=== PATIENT | female | born 1940 | race Caucasian/White ===

== ENCOUNTER 2023-03-27 09:20 | Outpatient (CLI) | payer MEDICARE, SELFPAY ==
[2023-03-27] MEDS: ZOLEDRONIC ACID 5 MG/100 ML 100 ML 400 MG IVPB (09:58)
[2023-03-27 10:09] VITALS: BP 126/63; PULSE 79; RESP 14; TEMP 36; O2SAT 98
--- NOTE | 2023-03-27 10:36 | PC.NURSE ---
patient tolerated infusion well ambulated to elevator to leave without difficulty
== END 2023-03-27 09:21 | disposition home or self-care (01) ==
PROVIDERS: PCP Internal Medicine; Visit Provider Internal Medicine
DX: M81.0 Age-related osteoporosis without current pathological fracture (principal)
CPT/HCPCS: 96365; 96374; J3489

== ENCOUNTER 2023-05-01 11:13 | Outpatient (CLI) | payer MEDICARE, SELFPAY ==
--- NOTE | ~2023-05-01 | XR_ITS ---
AP and lateral views of the left hip Clinical history: Pain Findings: No acute fracture or dislocation is seen. Osseous alignment is anatomic. There is mild dege nerative change of the left hip joint. Soft tissues are unremarkable. Impression: Mild degenerative change of the left hip joint. Reviewed, dictated and finalized at location . Impression: Mild degenerative change of the left hip joint.
== END 2023-05-01 11:14 | disposition home or self-care (01) ==
LOC: CHSIMG 11:15
PROVIDERS: PCP Internal Medicine; Visit Provider Internal Medicine
DX: M25.552 Pain in left hip (principal)
CPT/HCPCS: 73502

== ENCOUNTER 2023-05-18 15:52 | Outpatient (RCR) | payer MEDICARE, SELFPAY ==
--- NOTE | 2023-05-18 16:54 | OPREHPOC ---
Outpatient Therapy Plan of Care This is a Multidisciplinary Plan of Care that may contain components documented by all disciplines (PT, OT, and ST.) PT Problem 1 PT Problem #1 Knowledge Deficit PT Goal 1 Goal 1. independent and compliant with HEP Target Visit 3 PT Problem 2 PT Problem #2 Pain PT Goal 1 Goal 1. 2/10 pain or less in the lower back/L buttock Target Visit 6 PT Problem 3 PT Problem #3 Impaired Flexibility PT Goal 1 Goal 1. improve bilateral hamstrings tightness to less than 20 degrees per the 90/90 test. 2. mild or less bilateral piriformis mm tightness Target Visit 6 PT Problem 4 PT Problem #4 Impaired Range of Motion PT Goal 1 Goal 1. improve bilateral lumbar side bending to greater than 25 degrees without pain Target Visit 6 PT Problem 5 PT Problem #5 Impaired Functional Mobil PT Goal 1 Goal 1. improve bilateral hip strength to 4+/5 or better 2. improve LEFS score to display 10% or less functional deficits 3. patient to stand for 30 minutes in therapy without rest 4. patient to return to prior level home care and functional activities without rest due to pain in the L buttock/hip Target Visit 6
--- NOTE | 2023-05-18 16:54 | PTOPEVAL1 ---
Assessment and note entered by JT File, PT Evaluation Information Assessment Status Evaluation Diagnosis L hip pain Onset 05/04/23 Subjective Information patient reports she saw her PCP for her pain already. she reports has pain with standing. he reports it hurts in the back of the L hip in the buttock. she reports she does ride a bike in her home every day. she reports she did have an xray of the L hip. she reports she has no pain with sitting. she reports the pain does not really go down the leg. she reports she has a history of bilateral knee and shoulder replacements. she reports when she gets up from the chair or sitting she has cramp feeling. she reports it is really bothering her. she reports Reported Pain Level Pain Score 0: Self Report Assessment PT Clinical Summary mrs. lund is a pleasant 82 yo woman who presents to skilled PT services for evaluation and treatment of L hip pain. upon examination, she presents with negative specical tests of the hip, negative special tests of the lower back, weakness in the hips, decreased lumbar rom, decreased functional activity performance, and pain location that indicates a more lumbar/sciatic type injury. continued skilled PT is indicated to improve her objective/functional deficits and progress towards a return to her prior level functional activity performance and quality of life. Plan of Care Interventions Electrical Stimulation,Gait Training,Hot Pack/Cold Pack,Manual Therapy,Neuro Re-education,Patient/ Caregiver Educati,Therapeutic Activities, Therapeutic Exercise PT Services Indicated Yes Treatment Frequency and 3x weekly for 6 visits Duration These treatments will address the objective and functional deficits as defined above. The patient will be advanced safely and appropriately in order for the patient to progress towards his/her prior level of function. Additional exercises will be introduced and as well as a comprehensive home exercise program upon discharge, if needed, ?to ensure carryover of functional gains achieved in the clinic. This treatment plan has been reviewed and agreement upon by the patient.
--- NOTE | 2023-05-26 14:08 | PCPTNOTE ---
patient cancelled due to work
--- NOTE | 2023-06-04 16:35 | PCPTNOTE ---
patient cancelled stating she has a lot going on today
--- NOTE | 2023-06-11 13:13 | OPREHPOC ---
Outpatient Therapy Plan of Care This is a Multidisciplinary Plan of Care that may contain components documented by all disciplines (PT, OT, and ST.) PT Problem 1 PT Problem #1 Knowledge Deficit PT Goal 1 Goal 1. independent and compliant with HEP Target Visit 3 Progress Met PT Problem 2 PT Problem #2 Pain PT Goal 1 Goal 1. 2/10 pain or less in the lower back/L buttock Target Visit 10 Progress Not Met PT Problem 3 PT Problem #3 Impaired Flexibility PT Goal 1 Goal 1. improve bilateral hamstrings tightness to less than 20 degrees per the 90/90 test. met 2. mild or less bilateral piriformis mm tightness Target Visit 10 Progress Partially Met PT Problem 4 PT Problem #4 Impaired Range of Motion PT Goal 1 Goal 1. improve bilateral lumbar side bending to greater than 25 degrees without pain Target Visit 10 Progress Not Met PT Problem 5 PT Problem #5 Impaired Functional Mobil PT Goal 1 Goal 1. improve bilateral hip strength to 4+/5 or better. met 2. improve LEFS score to display 10% or less functional deficits. not met 3. patient to stand for 30 minutes in therapy without rest. 4. patient to return to prior level home care and functional activities without rest due to pain in the L buttock/hip. Target Visit 10 Progress Partially Met
--- NOTE | 2023-06-11 13:13 | PTOPREEVAL ---
Assessment and note entered by JT File, PT Evaluation Information Assessment Status Re-evaluation Diagnosis L hip pain Onset 05/04/23 Subjective Information patient reports she feels Alright today. she reports she believes she may feel slightly better. she reports her symptoms are generally worse in the evenings, and worse with increased activities. she reports she tries to stay busy. she reports she still has difficulty with going up and down steps (but uses a rail for safety), taking too much from the car at one time, and she does not get on ladders currently. Reported Pain Level Pain Score 5: Self Report Assessment PT Clinical Summary mrs. lund presents to skilled PT for her 6th skilled therapy visit. today, she displays improved lumbar rom, improve hamstrings flexibility, increased hip strength, and decreased pain. despite essentially no change on the LEFS score, patient reports she does feel better and that she is improving. she reports she would like to continue skilled PT. she continues to have unmet goals for skilled PT, and would benefit from continued skilled PT intervention to improve her objective/functional deficits to achieve these goals. Plan of Care Interventions Electrical Stimulation,Gait Training,Hot Pack/Cold Pack,Manual Therapy,Neuro Re-education,Patient/ Caregiver Educati,Therapeutic Activities, Therapeutic Exercise PT Services Indicated Yes Treatment Frequency and continue skilled PT 2x weekly for 4 more visits Duration These treatments will address the objective and functional deficits as defined above. The patient will be advanced safely and appropriately in order for the patient to progress towards his/her prior level of function. Additional exercises will be introduced and as well as a comprehensive home exercise program upon discharge, if needed, ?to ensure carryover of functional gains achieved in the clinic. This treatment plan has been reviewed and agreement upon by the patient.
--- NOTE | 2023-06-26 16:41 | OPREHPOC ---
Outpatient Therapy Plan of Care This is a Multidisciplinary Plan of Care that may contain components documented by all disciplines (PT, OT, and ST.) PT Problem 1 PT Problem #1 Knowledge Deficit PT Goal 1 Goal 1. independent and compliant with HEP Target Visit 3 Progress Met PT Problem 2 PT Problem #2 Pain PT Goal 1 Goal 1. 2/10 pain or less in the lower back/L buttock Target Visit 14 Progress Not Met PT Problem 3 PT Problem #3 Impaired Flexibility PT Goal 1 Goal 1. improve bilateral hamstrings tightness to less than 20 degrees per the 90/90 test. met 2. mild or less bilateral piriformis mm tightness Target Visit 14 Progress Partially Met PT Problem 4 PT Problem #4 Impaired Range of Motion PT Goal 1 Goal 1. improve bilateral lumbar side bending to greater than 25 degrees without pain, met for R Target Visit 14 Progress Not Met PT Problem 5 PT Problem #5 Impaired Functional Mobil PT Goal 1 Goal 1. improve bilateral hip strength to 4+/5 or better. met 2. improve LEFS score to display 10% or less functional deficits. 3. patient to stand for 30 minutes in therapy without rest. 4. patient to return to prior level home care and functional activities without rest due to pain in the L buttock/hip. Target Visit 14 Progress Partially Met
--- NOTE | 2023-06-26 16:41 | PTOPREEVAL ---
Assessment and note entered by Nithya Stone DPT Evaluation Information Assessment Status Progress - Pt Not Present Diagnosis L hip pain Onset 05/04/23 Subjective Information patient reports she is feeling better but today did have increased pain with yard work and getting up out of a chair. she reports overall she has improved and would like to continue with PT 1x/ weekly. Reported Pain Level Pain Score 5: Self Report Pain Score 5: Self Report Assessment PT Clinical Summary mrs. lund presents to skilled PT for her 10th skilled therapy visit. today, she displays improved L lumbar rotation ROM, increased hip strength, and decreased pain. she demonstrates improvement on the LEFS score, patient reports she does feel better and that she is improving. today she attempted yard work and noticed increased pain with increased activity she reports she would like to continue skilled PT 1x weekly. she continues to have unmet goals for skilled PT, and would benefit from continued skilled PT intervention to improve her objective/functional deficits to achieve these goals. Plan of Care Interventions Electrical Stimulation,Gait Training,Hot Pack/Cold Pack,Manual Therapy,Neuro Re-education,Patient/ Caregiver Educati,Therapeutic Activities, Therapeutic Exercise PT Services Indicated Yes Treatment Frequency and continue skilled PT 1x weekly for 4 more visits Duration These treatments will address the objective and functional deficits as defined above. The patient will be advanced safely and appropriately in order for the patient to progress towards his/her prior level of function. Additional exercises will be introduced and as well as a comprehensive home exercise program upon discharge, if needed, ?to ensure carryover of functional gains achieved in the clinic. This treatment plan has been reviewed and agreement upon by the patient.
--- NOTE | 2023-07-10 14:31 | PCPTNOTE ---
Patient cancelled session due to weather.
--- NOTE | 2023-07-22 13:55 | PCPTNOTE ---
pt cancelled giving no reason
--- NOTE | 2023-08-04 14:00 | OPREHPOC ---
Outpatient Therapy Plan of Care This is a Multidisciplinary Plan of Care that may contain components documented by all disciplines (PT, OT, and ST.) PT Problem 1 PT Problem #1 Knowledge Deficit PT Goal 1 Goal 1. independent and compliant with HEP Target Visit 3 Progress Met PT Problem 2 PT Problem #2 Pain PT Goal 1 Goal 1. 2/10 pain or less in the lower back/L buttock Target Visit 14 Progress Met PT Problem 3 PT Problem #3 Impaired Flexibility PT Goal 1 Goal 1. improve bilateral hamstrings tightness to less than 20 degrees per the 90/90 test. met 2. mild or less bilateral piriformis mm tightness. met Target Visit 14 Progress Met PT Problem 4 PT Problem #4 Impaired Range of Motion PT Goal 1 Goal 1. improve bilateral lumbar side bending to greater than 25 degrees without pain, met Target Visit 14 Progress Met PT Problem 5 PT Problem #5 Impaired Functional Mobil PT Goal 1 Goal 1. improve bilateral hip strength to 4+/5 or better. met 2. improve LEFS score to display 10% or less functional deficits. 3. patient to stand for 30 minutes in therapy without rest. met 4. patient to return to prior level home care and functional activities without rest due to pain in the L buttock/hip. met Target Visit 14 Progress Partially Met
--- NOTE | 2023-08-04 14:00 | PTOPDC ---
Assessment and note entered by JT File, PT Evaluation Information Assessment Status Discharge Diagnosis L hip pain Onset 05/04/23 Subjective Information patient reports she feels good today. she reports she has no pain in the lower back or the L LE. she reports she has been back to doing all previous activities without issues. Reported Pain Level Pain Score 0: Self Report Assessment PT Clinical Summary mrs. lund presents to skilled PT services for her 14th skilled PT visit. as of this date, she presents with no pain in the lower back or L LE. she has returned to all prior level functional activities without limitation. her rom, strength, and functional activity performance is improved. she does rate her oswestry slightly higher, but patient does not attempt to lift more than light weight ever. she will DC skilled PT today, and continue with HEP independent at home. she would benefit from a home TENS unit to aid in treating small flare ups of soreness/pain. Plan of Care PT Services Indicated Yes
== END 2023-08-04 14:21 | disposition home or self-care (01) ==
LOC: CHSPT 15:52
PROVIDERS: Visit Provider Internal Medicine
DX: M25.552 Pain in left hip (principal)
CPT/HCPCS: 97014; 97110; 97140; 97161; G0283

== ENCOUNTER 2023-05-28 07:08 | Outpatient (CLI) | payer MEDICARE, SELFPAY ==
--- NOTE | ~2023-05-28 | MR_ITS ---
MRI of the left hip Clinical history: Pain and swelling Technique: Coronal T1-weighted, T2-weighted, and proton-density fat-sat images, and axial T1-weighted and proton-density fat-sat images were acquired through the pelvis. Coronal T2-weighted images and c oronal, axial, and sagittal proton-density fat-sat images were acquired through the left hip. Findings: There is no fracture or avascular necrosis of either hip. Bone marrow signals the proximal femora and visualized pelvic bones are unremarkable. Bilateral hip joint spaces are preserved. There is bony spurring at the superolateral acetabular margins bilaterally. No significant hip joint effusi on present. Articular cartilage is relatively well-preserved, with thinning at the superolateral aspe cts bilaterally. There is probable degenerative tearing of the superolateral the posterior left aceta bular labrum. There is tendinosis of the left gluteus minimus tendon in particular at its insertion at the greater trochanter. Remaining musculature and tendons appear intact. No soft tissue mass or fluid collection evident. No bursitis evident. IMPRESSION: Moderate tendinosis at the left gluteus minimus tendon insertion at the greater trochanter with mild surrounding soft tissue edema. Degenerative spurring at the superolateral acetabular margins bilaterally, with probable degenerative tearing of the superolateral to posterior left acetabular labrum. Reviewed, dictated and finalized at location . IMPRESSION: Moderate tendinosis at the left gluteus minimus tendon insertion at the greater trochanter with mild surrounding soft tissue edema. Degenerative spurring at the superolateral acetabular margins bilaterally, with probable degenerative tearing of the superolateral to posterior left acetabula r labrum.
== END 2023-05-28 07:09 | disposition home or self-care (01) ==
LOC: CHSIMG 07:09
PROVIDERS: PCP Internal Medicine; Visit Provider Internal Medicine
DX: M25.552 Pain in left hip (principal); M79.89 Other specified soft tissue disorders; M76.02 Gluteal tendinitis, left hip; M76.892 Other specified enthesopathies of left lower limb, excluding foot
CPT/HCPCS: 73721

== ENCOUNTER 2024-02-29 14:21 | Outpatient (CLI) | payer MEDICARE, SELFPAY ==
--- NOTE | ~2024-02-29 | CT_ITS ---
CT brain wo con Ordering provider: Genaro Witt MD History: 83 years Female with . headache/nausea/dyspnea,WORSENING XWEEKS . Comparison: None. Technique: CT of the head without contrast. Radiation reduction technique utilized. The dose-length product was 605.33 mGy-cm. FINDINGS: BRAIN PARENCHYMA AND CSF SPACES: No midline shift, mass effect or hemorrhage. The brain parenchyma a nd CSF spaces are otherwise normal. VISUALIZED PARANASAL SINUSES: Well aerated. MASTOIDS: Well aerated. BONES: The bones appear intact. SOFT TISSUES: Visualized nasopharynx is normal. Superficial soft tissues are normal. IMPRESSION: No acute intracranial findings. Reviewed, dictated and finalized at location A. SITIONS MANAGER
[2024-02-29 14:42] LABS: Basophils Absolute Auto 0.02 K/mm3 (0.00-0.10); Basophils Percent Auto 0.4 % (0.0-1.0); Eosinophils Absolute Auto 0.04 K/mm3 (0.02-0.50); Eosinophils Percent Auto 0.9 % (1.0-6.0); Hematocrit 39.4 % (35.0-42.0); Hemoglobin 12.7 g/dL (11.7-13.8); Immature Granulocyte Absolute 0.01 K/mm3 (0.00-0.00); Immature Granulocyte Percent A 0.2 % (0.0-0.0); Lymphocytes Absolute Auto 1.15 K/mm3 (1.10-4.50); Lymphocytes Percent Auto 25.1 % (18.0-42.0); Mean Corpuscular HGB Conc 32.2 g/dL (32-36); Mean Corpuscular Hemoglobin 30.8 pg (27.0-31.0); Mean Corpuscular Volume 95.4 fL (78.0-102.0); Mean Platelet Volume 9.9 fl (9.2-11.8); Monocytes Percent Auto 8.7 % (2.0-11.0); Neutrophils Absolute Auto 2.96 K/mm3 (1.70-7.20); Neutrophils Percent Auto 64.7 % (50.0-70.0); Platelet Count Result 184 K/mm3 (150-420); Red Blood Count 4.13 M/mm3 (4.20-5.40); Red Cell Distribution Width 13.6 % (11.6-14.4); White Blood Count 4.6 K/mm3 (4.8-10.8)
[2024-02-29 15:01] LABS: Alanine Aminotransferase 22 U/L (14-59); Albumin Level 4.1 g/dL (3.4-5.0); Alkaline Phosphatase 55 U/L (46-116); Amylase 27 U/L (25-115); Anion Gap 9 mmol/L (4-12); Aspartate Amino Transferase 17 U/L (15-37); Bilirubin,Total 0.3 mg/dL (0.00-1.00); Blood Urea Nitrogen 19 mg/dL (7-18); Calcium 9.3 mg/dL (8.5-10.1); Carbon Dioxide 31 mmol/L (21-32); Chloride 101 mmol/L (98-108); Estimated Glomerular Filt Rate 48; Glucose 81 mg/dL (70-99); Lipase 27 U/L (16-77); Osmolality Calculated 293 mOsm/kg (285-295); Potassium 3.7 mmol/L (3.5-5.1); Sodium 141 mmol/L (136-145); Total Protein 7.3 g/dL (6.4-8.2)
[2024-02-29 15:11] LABS: CRP < 0.5 mg/dL (0.0-0.9)
[2024-02-29 15:45] LABS: SARS-CoV-2 RNA PCR Negative (Negative)
[2024-02-29 15:47] LABS: Influenza A QL RT-PCR Negative (Negative); Influenza B QL RT-PCR Negative (Negative)
[2024-02-29 15:59] LABS: Erythrocyte Sedimentation Rate 21 mm/hr (0-20)
== END 2024-02-29 14:22 | disposition home or self-care (01) ==
LOC: CHSLAB 14:23
PROVIDERS: PCP Internal Medicine; Visit Provider Internal Medicine
DX: R51.9 Headache, unspecified (principal); R11.2 Nausea with vomiting, unspecified
CPT/HCPCS: 36415; 70450; 80053; 82150; 83690; 85025; 85652; 86140; 87636

== ENCOUNTER 2024-04-14 09:53 | Outpatient (CLI) | payer MEDICARE, SELFPAY ==
[2024-04-14 10:11] VITALS: BP 109/63; PULSE 74; RESP 16; TEMP 36.6; O2SAT 97; BMI 29.8
[2024-04-14] MEDS: ZOLEDRONIC ACID 5 MG/100 ML 100 ML 400 MG IVPB (10:15)
[2024-04-14 10:35] VITALS: BP 109/60; PULSE 68; RESP 14
--- NOTE | 2024-04-14 11:59 | PC.NURSE ---
1040 Patient here for Reclast. Education given. No concerns voiced. Reclast administered. SEE MAR/patient care notes. Tolerated well.
== END 2024-04-14 09:54 | disposition home or self-care (01) ==
PROVIDERS: PCP Internal Medicine; Visit Provider Internal Medicine
DX: M81.0 Age-related osteoporosis without current pathological fracture (principal)
CPT/HCPCS: 96374; J3489

== ENCOUNTER 2024-04-25 10:40 | Outpatient (CLI) | payer MEDICARE, SELFPAY ==
[2024-04-25 11:10] LABS: Add Urine Microscopic? YES; Appearance Urine Sl Cloudy (Clear); Basophils Absolute Auto 0.02 K/mm3 (0.00-0.10); Basophils Percent Auto 0.3 % (0.0-1.0); Bilirubin Urine Negative (Negative); Blood Urine Negative (Negative); Color Urine Yellow (Yellow); Eosinophils Absolute Auto 0.04 K/mm3 (0.02-0.50); Eosinophils Percent Auto 0.7 % (1.0-6.0); Glucose Urine UA Negative (Negative); Hemoglobin 12.9 g/dL (11.7-13.8); Immature Granulocyte Absolute 0.02 K/mm3 (0.00-0.00); Immature Granulocyte Percent A 0.3 % (0.0-0.0); Ketones Urine Negative (Negative); Leukocyte Esterase Ur Trace LEU/UL (Negative); Lymphocytes Absolute Auto 1.29 K/mm3 (1.10-4.50); Lymphocytes Percent Auto 22.5 % (18.0-42.0); Mean Corpuscular HGB Conc 32.3 g/dL (32-36); Mean Corpuscular Hemoglobin 31.3 pg (27.0-31.0); Mean Corpuscular Volume 97.1 fL (78.0-102.0); Monocytes Absolute Auto 0.46 K/mm3 (0.10-0.90); Neutrophils Percent Auto 68.2 % (50.0-70.0); Nitrate Urine Negative (Negative); Platelet Count Result 193 K/mm3 (150-420); Protein Urine Trace (Negative); Red Blood Count 4.12 M/mm3 (4.20-5.40); Red Cell Distribution Width 13.6 % (11.6-14.4); Specific Grav Ur >= 1.030 (1.010-1.020); Urobilinogen Urine 0.2 mg/dL (0.2-1.0); White Blood Count 5.7 K/mm3 (4.8-10.8); pH Urine 5.5 (5.0-8.0)
[2024-04-25 11:15] LABS: Bacteria Urine 1+ /hpf; RBC Urine None seen /hpf (0-2); Squamous Epithelial Cell Urine Few /hpf (Few)
[2024-04-25 11:54] LABS: Alanine Aminotransferase 27 U/L (14-59); Alkaline Phosphatase 60 U/L (46-116); Anion Gap 7 mmol/L (4-12); Aspartate Amino Transferase 16 U/L (15-37); Bilirubin,Total 0.3 mg/dL (0.00-1.00); Blood Urea Nitrogen 22 mg/dL (7-18); Calcium 9.3 mg/dL (8.5-10.1); Carbon Dioxide 31 mmol/L (21-32); Chloride 106 mmol/L (98-108); Cholesterol 229 mg/dL (0-200); Creatine Kinase 191 U/L (26-192); Estimated Glomerular Filt Rate 48; Free T4 Free Thyroxine 1.01 ng/dL (0.76-1.46); Glucose 103 mg/dL (70-99); HDL Direct 80 mg/dL (40-60); LDL Cholesterol Calculated 113 mg/dL (<130); Osmolality Calculated 301 mOsm/kg (285-295); Potassium 4.5 mmol/L (3.5-5.1); Sodium 144 mmol/L (136-145); Thyroid Stimulating Hormone 5.79 uIU/mL (0.36-3.74); Triglycerides 178 mg/dL (0-150)
[2024-04-25 12:05] LABS: Free T3 1.74 pg/mL (2.18-3.98)
--- OUTSIDE RECORDS SUMMARY | 2024-04-25 12:36 | XMS_ITS | Encounter Summary ---
Author Organization [facility] Address [facility] [place] [address] Care Team Providers Care Material Handling Equipment Stevedore Name Role Phone Kannan So MD Primary Care Provider Genaro Witt MD Primary Care Provider [phone] Encounter Details Date Type Department Care Team (Late st Contact Info) Description 07/24/2018 Abstract [facility] CONVERSION [address] [place] [address] , Generic MD Curtis Social History Tobacco Use Types Packs/Day Years Used Date Smoking Tobacco: Never Smokeless Tobacco: Never Alcohol Use Standard Drinks/Week Comments Yes 0 (1 standard drink = 0.6 oz pur e alcohol) occasional Comments Unknown Sex and Gender Information Value Date Recorded Sex Assigned at Female 03/03/2018 8:38 AM NON DESTRUCTIVE TESTING ENGINEER Legal Sex Female 7:55 PM CDT Gender Identity Female 03/03/2018 8:38 AM NON DESTRUCTIVE TESTING ENGINEER Sexual Orientation Not on file documented as of this encounter Plan of Treatment Not on file documented as of this encounter Visit Diagnoses Not on filedocumented in this encounter Additional Health Concerns Infection Onset Date Last Indicated Resolved Time COVID-19 Rule Out 02/17/2020 02/17/2020 02/19/2020 9:31 AM NON DESTRUCTIVE TESTING ENGINEER COVID-19 Rule Out 10/10/2020 10/10/2020 10/10/2020 10:58 AM CDT COVID-19 Rule Out 10/10/2020 10/10/2020 10/10/2020 10:50 PM CDT documented as of this encounter Care Teams Material Handling Equipment Stevedore Relationship Specialty Start Date End Date Kannan So MD [address] [place] [address] PCP - General FAMILY PRACTICE 03/02/18 09/30/22 Genaro Witt MD [address] [place] [address] PCP - General INTERNAL MEDICINE 10/01/22 documented as of this encounter
--- OUTSIDE RECORDS SUMMARY | 2024-04-25 12:36 | XMS_ITS | Encounter Summary ---
Author Organization [facility] Address [facility] [place] [address] Care Team Providers Care Licensed Life And Health Agent Name Role Phone Kannan So MD Primary Care Provider [phone] Genaro Witt MD Primary Care Provider [phone] Encounter Details Date Type Department Care Team (Late st Contact Info) Description 04/29/2022 Hospital Orders Only [facility] [address] [place] [address] Keshawn Figueroa, DPT Social History Tobacco Use Types Packs/Day Years Used Date Smoking Tobacco: Never Smokeless Tobacco: Never Alcohol Use Standard Drinks/Week Comments Yes 0 (1 standard drink = 0.6 oz pur e alcohol) occasional Comments No Sex and Gender Information Value Date Recorded Sex Assigned at Female 03/03/2018 8:38 AM CHEMISTRY MANAGER Legal Sex Female 7:55 PM CDT Gender Identity Female 03/03/2018 8:38 AM CHEMISTRY MANAGER Sexual Orientation Not on file COVID-19 Exposure Response Date Recorded In the last 10 days, have yo u been in contact with someone who was confirmed or suspected to have Coronavirus/COVID-19? No / Unsure 05/01/2022 9:50 AM CDT documented as of this encounter Functional Status * RETIRED Are you deaf or do you have serious difficulty hearing Answer Date of Assessment Author Status No 03/10/2022 1:47 PM CHEMISTRY MANAGER Activ e * RETIRED Are you blind or do you have serious difficulty seeing, even when wearing glasses? Answer Date of Assessment Author Status No 03/10/2022 1:47 PM CHEMISTRY MANAGER Activ e * Do you have serious difficulty walking or climbing stairs? Answer Date of Assessment Author Status No 03/10/2022 1:47 PM Jahaira Delatorre RN Active * Do you have difficulty dressing or bathing? Answer Date of Assessment Author Status No 03/10/2022 1:47 PM Jahaira Delatorre RN Active * Because of a physical, mental, or emotional condition, do you have difficulty doing errands alone such as visiting a doctor's office or shopping? Answer Date of Assessment Author Status No 03/10/2022 1:47 PM Jahaira Delatorre RN Active documented as of this encounter Mental Status * Because of a physical, mental, or emotional condition, do you have serious difficulty concentrating, remembering, or making decisions? Answer Entry Date Author Status No 03/10/2022 1:47 PM Jahaira Delatorre RN Active documented in this encounter Plan of Treatment Not on file documented as of this encounter Goals Goal Patient Goal Type Associated Problems Recent Progress Patient-Stated? Author Patient will return to prior living situation and remain independent in ADLs upon discharge from hospital Lifestyle No Andie Sanchez RN documented as of this encounter Visit Diagnoses Not on filedocumented in this encounter Care Teams Licensed Life And Health Agent Relationship Specialty Start Date End Date Kannan So MD [address] [place] [id number] PCP - General FAMILY PRACTICE 03/02/18 09/30/22 Genaro Witt MD [address] [place] [address] PCP - General INTERNAL MEDICINE 10/01/22 documented as of this encounter
--- OUTSIDE RECORDS SUMMARY | 2024-04-25 12:36 | XMS_ITS | Clinical Summary ---
Author Organization [facility] Address [address] [place] [address] Care Team Providers Care Softball Player Name Role Phone Genaro Witt MD Primary Care Provider [phone] Allergies No known active allergies Medications levothyroxine 100 MCG tabletIndicatio ns:Hypothyroidi sm Take 1 tablet (100 mcg total) by mouth every morning. Indications: Underactive Thyroid 1 Active omeprazole (PRILOSEC) 40 MG capsuleIndicati ons:acid reflux Take 1 capsule (40 mg total) by mouth 2 (two) times daily as needed. Indications: acid reflux 2 Active ibuprofen (MOTRIN) 400 MG tabletIndicatio ns:Pain Take 1 tablet (400 mg total) by mouth every 4 (four) hours as needed. Indications: Pain Alternating with [place]. 3 Active docusate sodium (COLACE) 100 MG capsuleIndicati ons:Constipatio n Take 1 capsule (100 mg total) by mouth 2 (two) times daily. Indications: Constipation 3 Active acetaminophen (TYLENOL) 500 MG tabletIndicatio ns:Pain Take 2 tablets (1,000 mg total) by mouth every 6 (six) hours as needed for Pain. Indications: Pain 3 Active alendronate (FOSAMAX) 70 MG tablet Take 1 tablet (70 mg total) by mouth every 7 days. 3 Active atorvastatin (LIPITOR) 40 MG tablet Take 1 tablet (40 mg total) by mouth daily. 3 Active fluticasone propionate (FLONASE) 50 MCG/ACT nasal spray 1 spray by Each Nostril route daily. 3 Active Active Problems Problem Noted Date Diagnosed Date Cellulitis of right lower leg 03/07/2020 Aftercare following surgery 03/18/2018 Menopausal and postmenopausal disorder 0 Hypothyroidism 04/19/2007 Iron deficiency anemia 07/21/2005 Colon, diverticulosis 05/28/2005 GERD (gastroesophageal reflux disease) Depression Hypercholesterolemia Vitamin D deficiency Hyperparathyroidism (HHS/HCC) Thyrotoxicosis Nonorganic sleep disorder Resolved Problems Problem Noted Date Diagnosed Date Resolved Date Status post reverse total sh oulder replacement, left 03/10/2022 04/23/2022 Nontraumatic tear of left ro tator cuff, unspecified tear extent 02/13/2022 04/23/2022 Aftercare following right kn ee joint replacement surgery 03/02/2020 04/23/2022 Status post total knee replacement, right 02/24/2020 03/07/2020 Status post total right knee replacement 02/20/2020 03/07/2020 Rotator cuff tear, right 11/03/2019 Primary osteoarthritis of right knee 12/24/2018 04/23/2022 Tear of meniscus of left knee 12/24/2018 12/24/2018 Status post reverse total sh oulder replacement, right 10/27/2018 11/03/2019 Rotator cuff tear arthropathy 10/25/2018 12/24/2018 Rotator cuff tear arthropath y, unspecified laterality 10/13/2018 10/27/2018 Rotator cuff arthropathy, right 09/16/2018 10/27/2018 Lipoma of arm 03/03/2018 03/18/2018 Aftercare following left kne e joint replacement surgery 10/29/2017 03/18/2018 Knee pain 06/12/2014 03/18/2018 Encounter for preventive health examination 06/02/2014 03/18/2018 Immunizations Name Administration Dates Next Due Influenza Adult (Generic) 11/10/2011 Family History Medical History Relation Comments No Known Problems Brother No Known Problems Father No Known Problems Maternal Aunt No Known Problems Maternal Grandfather No Known Problems Maternal Grandmother No Known Problems Maternal Uncle No Known Problems Mother No Known Problems Paternal Aunt No Known Problems Paternal Grandfather No Known Problems Paternal Grandmother No Known Problems Paternal Uncle None Neg Hx Relation Status Comments Brother Alive Father Maternal Aunt Maternal Grandfather Maternal Grandmother Maternal Uncle Mother Paternal Aunt Paternal Grandfather Paternal Grandmother Paternal Uncle Social History Tobacco Use Types Packs/Day Years Used Date Smoking Tobacco: Never Smokeless Tobacco: Never Tobacco Cessation:Counseling Given: Not Answered Alcohol Use Standard Drinks/Week Comments Yes 0 (1 standard drink = 0.6 oz pur e alcohol) occasional Comments No Sex and Gender Information Value Date Recorded Sex Assigned at Female 03/03/2018 8:38 AM CLEAN RICE GRADER AND REEL TENDER Legal Sex Female 7:55 PM CDT Gender Identity Female 03/03/2018 8:38 AM CLEAN RICE GRADER AND REEL TENDER Sexual Orientation Not on file Last Filed Vital Signs Vital Sign Reading Time Taken Comments Blood Pressure 120/72 03/19/2022 12:31 PM CLEAN RICE GRADER AND REEL TENDER Pulse 81 03/13/2022 8:52 AM CLEAN RICE GRADER AND REEL TENDER Temperature 36.5 C (97.7 F) 03/13/2022 8:52 AM CLEAN RICE GRADER AND REEL TENDER Respiratory Rate 18 03/13/2022 8:52 AM CLEAN RICE GRADER AND REEL TENDER Oxygen Saturation 97% 03/13/2022 8:52 AM CLEAN RICE GRADER AND REEL TENDER Inhaled Oxygen Concentration - - Weight 80.3 kg (177 lb) 12/31/2022 4:16 PM CLEAN RICE GRADER AND REEL TENDER Height 154.9 cm (5' 1 ) 12/31/2022 4:16 PM CLEAN RICE GRADER AND REEL TENDER Body Mass Index 33.44 12/31/2022 4:16 PM CLEAN RICE GRADER AND REEL TENDER Plan of Treatment Health Maintenance Due Date Last Done Comments DTaP, Tdap and Td Vaccines ( 1 - Tdap) 1960 Zoster Vaccines (1 of 2) 07/23/1991 Annual Medicare Wellness Visit 2006 RSV Immunization or 60+ Years (1 - 1-dose 75+ series) 2016 Pneumococcal Vaccine: 65+ Ye ars (2 of 2 - PPSV23 or PCV20) 01/07/2018 01/07/2017 COVID-19 Vaccine (2 - 2023-2 5 season) 2023 04/30/2020 Influenza Adult (#1) 2023 11/10/2011 Dexa Scan (General) Completed 06/17/2022 Meningococcal B Vaccine Aged Out No l onger eligible based on patient's age to complete this topic Meningococcal Vaccine Aged Out No ruth esdras eligible based on patient's age to complete this topic RSV Immunizations Under 20 Months Aged Out No longer eligible based on patient's age to complete this topic Goals Goal Patient Goal Type Associated Problems Recent Progress Patient-Stated? Author Patient will return to prior living situation and remain independent in ADLs upon discharge from hospital Lifestyle Andie Mcdaniels RN Medical Devices Implanted Type Area Psychologist Chief Device Identifier Shelf Expiration Date Model / Serial / Lot Cement Simplex Hv W/Gentamicin - [id number] Implanted:Qty: 2 on 02/20/2020 by Crow Bradford MD at [facility] Cement Implant Right: Knee [employer]ENE[employer]ER [employer] - DIV EBENEZER LIA 11/15/2020 6195-1-010 / / [id number] Stem Humeral 121mm 12mm Modular Global Unite Porous Standard Shoulder Platform Arthroplasty System - [id number] Implanted:Qty: 1 on 03/10/2022 by Crow Bradford MD at [facility] Humeral Left: Shoulder DEPUY [id number] 12/17/2031 [id number] / / [id number] Cup Humeral Standard Delta Xtend Depuy - [id number] Implanted:Qty: 1 on 03/10/2022 by Crow Bradford MD at [facility] Humeral Left: Shoulder DEPUY [id number] 10/16/2026 [id number] / / [id number] Component Ptlr 32mm Medialize Dome Attune - [id number] Implanted:Qty: 1 on 02/20/2020 by Crow Bradford MD at [facility] Patella Right: Knee [employer]PU[employer] - [employer] S[employer]IA [id number] 12/16/2024 [id number] / / [id number] Description:*Unable to add SFL OR to inventory location in above information Screw Locking Depuy Delta Xtend Lg 36mm - [id number] Implanted:Qty: 1 on 03/10/2022 by Crow Bradford MD at [facility] Screw Left: Shoulder DEPUY [id number] 12/16/2026 [id number] / / [id number] Screw Locking Depuy Delta Xtend Lg 30mm - [id number] Implanted:Qty: 1 on 03/10/2022 by Crow Bradford MD at [facility] Screw Left: Shoulder DEPUY [id number] 09/15/2026 [id number] / / [id number] Metaglene Depuy Delta Xtend - [id number] Implanted:Qty: 1 on 10/25/2018 by Crow Bradford MD at [facility] Right: Shoulder DEPUY 05/17/2023 [id number] / / [id number] Screw Locking Depuy Delta Xtend Lg 36mm - [id number] Implanted:Qty: 1 on 10/25/2018 by Crow Bradford MD at [facility] Right: Shoulder DEPUY 03/18/2023 [id number] / / [id number] Screw Locking Depuy Delta Xtend Lg 30mm - [id number] Implanted:Qty: 1 on 10/25/2018 by Crow Bradford MD at [facility] Right: Shoulder DEPUY 04/16/2023 [id number] / / [id number] Screw Non Locking Depuy Delta Xtend Lg 18mm - [id number] Implanted:Qty: 1 on 10/25/2018 by Crow Bradford MD at [facility] Right: Shoulder DEPUY 06/16/2023 [id number] / / [id number] Screw Non Locking Depuy Delta Xtend Lg 18mm - [id number] Implanted:Qty: 1 on 10/25/2018 by Crow Bradford MD at [facility] Right: Shoulder DEPUY 04/16/2023 [id number] / / [id number] Glenosphere Eccentric Depuy 38mm - [id number] Implanted:Qty: 1 on 10/25/2018 by Crow Bradford MD at [facility] Right: Shoulder DEPUY 06/16/2023 [id number] / / [id number] Epiphysis Delta Xtend Depuy Size 1 Right - [id number] Implanted:Qty: 1 on 10/25/2018 by Crow Bradford MD at [facility] Right: Shoulder DEPUY 04/16/2023 [id number] / / [id number] Global Unite Porocoat Standard Stem Implanted:Qty: 1 on 10/25/2018 by Crow Bradford MD at [facility] Right: Shoulder 11/16/2027 1099-11-25 0 / / [id number] Cup Humeral Standard Delta Xtend Depuy - [id number] Implanted:Qty: 1 on 10/25/2018 by Crow Bradford MD at [facility] Right: Shoulder DEPUY 05/17/2023 [id number] / / [id number] Attune Femoral Cruciate Retaining Size 4 Right Cemented Implanted:Qty: 1 on 02/20/2020 by Crow Bradford MD at [facility] Right: Knee [employer] - [employer] [id number] 08/15/2029 4 / / [id number] Baseplate Tibial Attune 4 Knee Cement Rotate Platform Sterile - [id number] Implanted:Qty: 1 on 02/20/2020 by Crow Bradford MD at [facility] Right: Knee DEPUY [id number] 11/15/2029 [id number] / / [id number] Attune Tibial Insert Rotating Platform Cruciate Retaining Size 4 Implanted:Qty: 1 on 02/20/2020 by Crow Bradford MD at [facility] Right: Knee [employer] - [employer] [id number] 04/15/2022 0 / / [id number] Delta Xtend Locking Metaglene Screw 4.5 Lg 30mm Implanted:Qty: 1 on 03/10/2022 by Crow Bradford MD at [facility] Left: Shoulder DEPUY [id number] 09/15/2026 0 / / [id number] Delta Xtend Non-Locking Metaglene Screw 4.5 Lg 18mm Implanted:Qty: 1 on 03/10/2022 by Crow Bradford MD at [facility] Left: Shoulder DEPUY [id number] 10/16/2026 8 / [id number] Delta Xtend Lateralized Glenosphere +2mm 38mm Standard Implanted:Qty: 1 on 03/10/2022 by Crow Bradford MD at [facility] Left: Shoulder DEPUY [id number] 10/16/2026 8 / / [id number] Delta Xtend Reverse Shoulder System Central Screw Metaglene Collet Implanted:Qty: 1 on 03/10/2022 by Crow Bradford MD at [facility] Left: Shoulder DEPUY [id number] 10/16/2026 1 / / [id number] Delta Xtend Reverse Shoulder System Central Metaglene Screw 6m X 20mm Implanted:Qty: 1 on 03/10/2022 by Crow Bradford MD at [facility] Left: Shoulder DEPUY [id number] 02/15/2031 0 / / [id number] Delta Xtend Reverse Shoulder System Central Screw Metaglene Standard Cementless Implanted:Qty: 1 on 03/10/2022 by Crow Bradford MD at [facility] Left: Shoulder DEPUY [id number] 09/16/2031 0 / / [id number] Delta Xtend Modular 155 Degree Epiphysis Size 1 Left Porocoat Implanted:Qty: 1 on 03/10/2022 by Crow Bradford MD at [facility] Left: Shoulder DEPUY [id number] 07/16/2030 2 / / [id number] Explanted Type Area Psychologist Chief Device Identifier Shelf Expiration Date Model / Serial / Lot Drill Bit Depuy 2.5 - [id number] Explanted:Qty: 1 on 03/10/2022 by Crow Bradford MD at [facility] Drill Left: Shoulder DEPUY [id number] / / Drill Bit Depuy 2.5 - [id number] Explanted:Qty: 1 on 10/25/2018 at [facility] Right: Shoulder DEPUY [id number] / / 2.5 Pin Explanted:Qty: 1 on 03/10/2022 by Crow Bradford MD at [facility] Left: Shoulder DEPUY [id number] / / Procedures Procedure Name Priority Date/Time Associated Diagnosis Comments BONE DENSITY/DEXA Routine 06/17/2022 10: 00 AM CDT Osteoporosis from Last 3 Months or Most Recently Relevant to Health Maintenance Results * BONE DENSITY/DEXA (06/17/2022 10:00 AM CDT) Anatomical Region Laterality Modality Bone Bone Density 06/17/2022 4:54 PM CDT Impressions 06/17/2022 4:55 PM CDT IMPRESSION: WHO Classification: Osteopenia RECOMMENDATIONS: All patients should ensure an adequate intake of dietary calcium and vitamin D. The NOF recommend adults under the age of 50 need 1000 mg of calcium and 400-800 IU of vitamin D daily. Effective therapy for the prevention and treatment of osteoporosis include bisphosphonates. FOLLOW-UP: People with diagnosed cases of osteoporosis or at high risk for fracture should have regular bone mineral density test. For patients eligible for Medicare, routine testing is allowed once every 2 years. Testing frequency can be increased to one year for patients who have rapidly progressing disease, those who are receiving or discontinuing medical therapy to restore bone mass, or have additional risk factors. Ordered By: CURT PERRY Interpreted By: Milo Borden, 06/17/2022 4:54 PM Narrative 06/17/2022 4:55 PM CDT EXAMINATION: BONE DENSITY/DEXA INDICATIONS: Age-related osteoporosis without current pathological fracture COMPARISON: None TECHNIQUE: DEXA bone mineral density evaluation was performed in the AP projection over the lumbar spine and both hips utilizing standard imaging techniques. FINDINGS: The BMD measured at the AP spine L1-L4 is 1.235 g/cm? with a T-score of 1.7. The BMD measured at the left femoral neck is 0.586 g/cm? with a T-score of -2.4. The BMD measured at the left hip is 0.883 g/cm? with a T-score of -0.5. The BMD measured at the right femoral neck is 0.648 g/cm? with a T-score of - 1.8. The BMD measured at the right hip is 0.901 g/cm? with a T-score of -0.3. FRAX 10-year fracture risk: Major Osteoporotic Fracture: 17% Hip Fracture: 5.4% Procedure Note Milo Borden MD - 06/17/2022 EXAMINATION: BONE DENSITY/DEXA INDICATIONS: Age-related osteoporosis without current pathologicalfracture COMPARISON: None TECHNIQUE: DEXA bone mineral density evaluation was performed in the APprojection over the lumbar spine and both hips utilizing standard imagingtechniques. FINDINGS: The BMD measured at the AP spine L1-L4 is 1.235 g/cm? with a T-score of1.7. The BMD measured at the left femoral neck is 0.586 g/cm? with a T-score of-2.4. The BMD measured at the left hip is 0.883 g/cm? with a T-score of -0.5. The BMD measured at the right femoral neck is 0.648 g/cm? with a T-scoreof -1.8. The BMD measured at the right hip is 0.901 g/cm? with a T-score of -0.3. FRAX 10-year fracture risk: Major Osteoporotic Fracture: 17% Hip Fracture: 5.4% IMPRESSION: WHO Classification: Osteopenia RECOMMENDATIONS: All patients should ensure an adequate intake of dietary calcium andvitamin D. The NOF recommend adults under the age of 50 need 1000 mg ofcalcium and 400-800 IU of vitamin D daily. Effective therapy for theprevention and treatment of osteoporosis include bisphosphonates. FOLLOW-UP: People with diagnosed cases of osteoporosis or at high risk for fractureshould have regular bone mineral density test. For patients eligible forMedicare, routine testing is allowed once every 2 years. Testing frequencycan be increased to one year for patients who have rapidly progressingdisease, those who are receiving or discontinuing medical therapy torestore bone mass, or have additional risk factors. Ordered By: CURT PERRY Interpreted By: Milo Borden, 06/17/2022 4:54 PM Curt Perry MD DEXA Final Result from Last 3 Months or Most Recently Relevant to Health Maintenance Insurance [facility] [address] Advance Directives * Full Code (Latest Code Status on File) Date Activated Date Inactivated Comments 03/13/2022 4:17 PM * Full Code Date Activated Date Inactivated Comments 03/10/2022 2:43 PM 03/11/2022 2:56 PM Care Teams Softball Player Relationship Specialty Start Date End Date Genaro Witt MD [address] [place] [address] PCP - General INTERNAL MEDICINE 10/01/22
[2024-04-26 11:29] LABS: Vitamin D 25 Hydroxy 44 ng/mL (30-100)
== END 2024-04-25 10:41 | disposition home or self-care (01) ==
LOC: CHSLAB 10:42
PROVIDERS: PCP Internal Medicine; Visit Provider Internal Medicine
DX: E89.0 Postprocedural hypothyroidism (principal); E78.2 Mixed hyperlipidemia; M81.0 Age-related osteoporosis without current pathological fracture; D70.9 Neutropenia, unspecified; N39.0 Urinary tract infection, site not specified
CPT/HCPCS: 36415; 80053; 80061; 81001; 82306; 82550; 84439; 84443; 84481; 85025

== ENCOUNTER 2024-06-13 13:50 | Outpatient (CLI) | payer MEDICARE, SELFPAY ==
[2024-06-13 15:09] LABS: Free T3 2.23 pg/mL (2.18-3.98)
[2024-06-13 15:17] LABS: Anion Gap 6 mmol/L (4-12); Blood Urea Nitrogen 20 mg/dL (7-18); Calcium 9.6 mg/dL (8.5-10.1); Carbon Dioxide 31 mmol/L (21-32); Chloride 106 mmol/L (98-108); Estimated Glomerular Filt Rate 48; Free T4 Free Thyroxine 1.11 ng/dL (0.76-1.46); Glucose 105 mg/dL (70-99); Osmolality Calculated 298 mOsm/kg (285-295); Potassium 4.1 mmol/L (3.5-5.1); Sodium 143 mmol/L (136-145); Thyroid Stimulating Hormone 6.23 uIU/mL (0.36-3.74)
--- OUTSIDE RECORDS SUMMARY | 2024-06-13 15:54 | XMS_ITS | Encounter Summary ---
Author Organization [facility] Address Formerly [facility] [place] [address] Care Team Providers Care Ornament Stitcher Name Role Phone Kannan So MD Primary Care Provider Genaro Witt MD Primary Care Provider [phone] Encounter Details Date Type Department Care Team (Late st Contact Info) Description 07/24/2018 Abstract SFL CONVERSION [address] [place] [address] , Generic MD Curtis Social History Tobacco Use Types Packs/Day Years Used Date Smoking Tobacco: Never Smokeless Tobacco: Never Alcohol Use Standard Drinks/Week Comments Yes 0 (1 standard drink = 0.6 oz pur e alcohol) occasional Comments Unknown Sex and Gender Information Value Date Recorded Sex Assigned at Female 03/03/2018 8:38 AM 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 SCHOOL Legal Sex Female 7:55 PM CDT Gender Identity Female 03/03/2018 8:38 AM NURSE SCHOOL Sexual Orientation Not on file documented as of this encounter Plan of Treatment Not on file documented as of this encounter Visit Diagnoses Not on filedocumented in this encounter Additional Health Concerns Infection Onset Date Last Indicated Resolved Time COVID-19 Rule Out 02/17/2020 02/17/2020 02/19/2020 9:31 AM NURSE SCHOOL COVID-19 Rule Out 10/10/2020 10/10/2020 10/10/2020 10:58 AM CDT COVID-19 Rule Out 10/10/2020 10/10/2020 10/10/2020 10:50 PM CDT documented as of this encounter Care Teams Ornament Stitcher Relationship Specialty Start Date End Date Kannan So MD [address] [place] [address] PCP - General FAMILY PRACTICE 03/02/18 09/30/22 Genaro Witt MD [address] [place] [address] PCP - General INTERNAL MEDICINE 10/01/22 documented as of this encounter
--- OUTSIDE RECORDS SUMMARY | 2024-06-13 15:54 | XMS_ITS | Encounter Summary ---
Author Organization [facility] Address On license of [facility] [place] [address] Care Team Providers Care Laminator Preforms Name Role Phone Kannan So MD Primary Care Provider [phone] Genaro Witt MD Primary Care Provider [phone] Encounter Details Date Type Department Care Team (Late st Contact Info) Description 04/29/2022 Hospital Orders Only [facility] [address] [place] [address] Keshawn Figueroa, DPT Social History Tobacco Use Types Packs/Day Years Used Date Smoking Tobacco: Never Smokeless Tobacco: Never Alcohol Use Standard Drinks/Week Comments Yes 0 (1 standard drink = 0.6 oz pur e alcohol) occasional Comments No Sex and Gender Information Value Date Recorded Sex Assigned at Female 03/03/2018 8:38 AM RENEWALS REPRESENTATIVE Legal Sex Female 7:55 PM CDT Gender Identity Female 03/03/2018 8:38 AM RENEWALS REPRESENTATIVE Sexual Orientation Not on file COVID-19 Exposure [...] Assessment Author Status No 03/10/2022 1:47 PM RENEWALS REPRESENTATIVE Activ e * RETIRED Are you blind or do you have serious difficulty seeing, even when wearing glasses? Answer Date of Assessment Author Status No 03/10/2022 1:47 PM RENEWALS REPRESENTATIVE Activ e * Do you have serious [...] on filedocumented in this encounter Care Teams Laminator Preforms Relationship Specialty Start Date End Date Kannan So MD [address] [place] [id number] PCP - General FAMILY PRACTICE 03/02/18 09/30/22 Genaro Witt MD [address] [place] [address] PCP - General INTERNAL MEDICINE 10/01/22 documented as of this encounter
--- OUTSIDE RECORDS SUMMARY | 2024-06-13 15:54 | XMS_ITS | Clinical Summary ---
Author Organization [facility] Address [address] [place] [address] Care Team Providers Care Rn Allergy Name Role Phone Genaro Witt MD Primary Care Provider [phone] Allergies No known active allergies Medications levothyroxine 100 MCG tabletIndicati ons:Hypothyroi dism Take 1 tablet (100 mcg total) by mouth every morning. Indications: Underactive Thyroid 04/14/19 21 Active omeprazole (PRILOSEC) 40 MG capsuleIndicat ions:acid reflux Take 1 capsule (40 mg total) by mouth 2 (two) times daily as needed. Indications: acid reflux 11/20/19 22 Active ibuprofen (MOTRIN) 400 MG tabletIndicati ons:Pain Take 1 tablet (400 mg total) by mouth every 4 (four) hours as needed. Indications: Pain Alternating with Dawn. 03/12/19 23 Active acetaminophen (TYLENOL) 500 MG tabletIndicati ons:Pain Take 2 tablets (1,000 mg total) by mouth every 6 (six) hours as needed for Pain. Indications: Pain 03/19/19 23 Active alendronate (FOSAMAX) 70 MG tablet Take 1 tablet (70 mg total) by mouth every 7 days. 07/22/19 23 Active atorvastatin (LIPITOR) 40 MG tablet Take 1 tablet (40 mg total) by mouth daily. 07/22/19 23 Active fluticasone propionate (FLONASE) 50 MCG/ACT nasal spray 1 spray by Each Nostril route daily. 09/09/19 23 Active docusate sodium (COLACE) 100 MG capsuleIndicat ions:Constipat ion Take 1 capsule (100 mg total) by mouth 2 (two) times daily. Indications: Constipation 03/13/19 23 025 Discontinued Active Problems Problem Noted Date Diagnosed Date [...] Encounter for preventive health examination 06/02/2014 03/18/2018 Encounters Date Type Department Care Team Description 05/16/2024 12:22 PM CDT - 05/16/2024 1:03 PM CDT Surgery [facility] [address] [place] [address] Fam Orozco MD CATARACT REMOVAL WITH IOL IMPLANT 05/16/2024 11:51 AM CDT Anesthesia Event [facility] [address] [place] [address] Gaviota Camacho CRNA Bell, Lisa M, CRNA 05/16/2024 10:50 AM CDT - 05/16/2024 12:41 PM CDT Hospital Encounter [facility] [address] [place] [address] Fam Orozco MD Discharge Disposition: Home or Self Care (Routine Discharge) 05/16/2024 Travel from Last 3 Months Immunizations Immunization Administration Dates Next Due Influenza Adult (Generic) [...] Sex Assigned at Female 03/03/2018 8:38 AM PROJECT ACCOUNTANT Legal Sex Female 7:55 PM CDT Gender Identity Female 03/03/2018 8:38 AM PROJECT ACCOUNTANT Sexual Orientation Not on file Last Filed Vital Signs Vital Sign Reading Time Taken Comments Blood Pressure 139/70 05/16/2024 12:31 PM CDT Pulse 78 05/16/2024 12:31 PM CDT Temperature 35.7 C (96.3 F) 05/16/2024 10:59 AM CDT Respiratory Rate 17 05/16/2024 12:31 PM CDT Oxygen Saturation 98% 05/16/2024 12:31 PM CDT Inhaled Oxygen Concentration - - Weight 73.5 kg (162 lb) 05/16/2024 10:59 AM CDT Height 157.5 cm (5' 2 ) 05/16/2024 10:59 AM CDT Body Mass Index 29.63 05/16/2024 10:59 AM CDT Plan of Treatment Health Maintenance Due Date Last Done Comments DTaP, Tdap and Td Vaccines ( 1 - Tdap) 1960 Zoster Vaccines (1 of 2) 07/23/1991 Annual Medicare Wellness Visit 2006 RSV Immunization or 60+ Years (1 - 1-dose 75+ series) 2016 Pneumococcal Vaccine: 50+ Ye ars (2 of 2 - PPSV23) 01/07/2018 01/07/2017 COVID-19 Vaccine (2 - 2023-2 5 season) 2023 04/30/2020 Dexa Scan (General) Completed 06/17/2022 Meningococcal B [...] upon discharge from hospital Lifestyle No Andie Sanchez, RN Medical Devices Implanted Type Area Special Services Coordinator Device Identifier Shelf Expiration Date Model / Serial / Lot Cement Simplex Hv W/Gentamicin - [id number] Implanted:Qty: 2 on 02/20/2020 by Crow Bradford MD at [facility] Cement Implant Right: Knee EBENEZER [employer]UM[employer] - DIV EBENEZER LIA 11/15/2020 6195-1-010 / / [id number] Stem Humeral 121mm 12mm Modular Global Unite Porous Standard Shoulder Platform Arthroplasty System - [id number] Implanted:Qty: 1 on 03/10/2022 by Crow Bradford MD at [facility] Humeral Left: Shoulder DEPUY [id number] 12/17/2031 [id number] / / [id number] Cup Humeral Standard Delta Xtend Depuy - [id number] Implanted:Qty: 1 on 03/10/2022 by Crow Bradford MD at [facility] Humeral Left: Shoulder DEPUY [id number] 10/16/2026 [id number] / / [id number] Iol Kalyan Cca0t0 - [id number] Implanted:Qty: 1 on 05/16/2024 by Fam Orozco MD at [facility] Lens Left: Eye KALYAN - SURGICAL DIV [id number] 01/01/2027 CCA0T0 / [id number] / Component Ptlr 32mm Medialize Dome Attune - [id number] Implanted:Qty: 1 on 02/20/2020 by Crow Bradford MD at [facility] Patella Right: Knee [employer] - [employer] SONIA [employer] SONIA [id number] 12/16/2024 [id number] / / [id number] Description:*Unable to add SFL OR to inventory location in above information Screw Locking Depuy Delta Xtend Lg 36mm - [id number] Implanted:Qty: 1 on 03/10/2022 by Crow Bradford MD at [facility] Screw Left: Shoulder DEPUY [id number] 12/16/2026 [id number] / / [id number] Screw Locking Depuy Delta Xtend Lg 30mm - [id number] Implanted:Qty: 1 on 03/10/2022 by Crow Bradford MD at [facility] Screw Left: Shoulder DEPUY [id number] 09/15/2026 [id number] / / [id number] Metaglene Depuy Delta Xtend - [id number] Implanted:Qty: 1 on 10/25/2018 by Crow Bradford MD at [facility] Right: Shoulder DEPUY 05/17/2023 [id number] / / [id number] Screw Locking Depuy Delta Xtend Lg 36mm - [id number] Implanted:Qty: 1 on 10/25/2018 by Crow Bradford MD at [facility] Right: Shoulder DEPUY 03/18/2023 [id number] / / [id number] Screw Locking Depuy Delta Xtend Lg 30mm - [id number] Implanted:Qty: 1 on 10/25/2018 by Crow Bradford MD at [facility] Right: Shoulder DEPUY 04/16/2023 [id number] / / [id number] Screw Non Locking Depuy Delta Xtend Lg 18mm - [id number] Implanted:Qty: 1 on 10/25/2018 by Crow Bradford MD at [facility] Right: Shoulder DEPUY 06/16/2023 [id number] / / [id number] Screw Non Locking Depuy Delta Xtend Lg 18mm - [id number] Implanted:Qty: 1 on 10/25/2018 by Crow Bradford MD at [facility] Right: Shoulder DEPUY 04/16/2023 [id number] / / [id number] Glenosphere Eccentric Depuy 38mm - [id number] Implanted:Qty: 1 on 10/25/2018 by Crow Bradford MD at [facility] Right: Shoulder DEPUY 06/16/2023 [id number] / / [id number] Epiphysis Delta Xtend Depuy Size 1 Right - [id number] Implanted:Qty: 1 on 10/25/2018 by Crow Bradford MD at [facility] Right: Shoulder DEPUY 04/16/2023 [id number] / / [id number] Global Unite Porocoat Standard Stem Implanted:Qty: 1 on 10/25/2018 by Crow Bradford MD at [facility] Right: Shoulder 11/16/2027 1099-11-25 0 / / [id number] Cup Humeral Standard Delta Xtend Depuy - [id number] Implanted:Qty: 1 on 10/25/2018 by Crow Bradford MD at [facility] Right: Shoulder DEPUY 05/17/2023 [id number] / / [id number] Attune Femoral Cruciate Retaining Size 4 Right Cemented Implanted:Qty: 1 on 02/20/2020 by Crow Bradford MD at [facility] Right: Knee [employer] - [employer] SONIA [id number] 08/15/2029 4 / / [id number] Baseplate Tibial Attune 4 Knee Cement Rotate Platform Sterile - [id number] Implanted:Qty: 1 on 02/20/2020 by Crow Bradford MD at [facility] Right: Knee DEPUY [id number] 11/15/2029 [id number] / / [id number] Attune Tibial Insert Rotating Platform Cruciate Retaining Size 4 Implanted:Qty: 1 on 02/20/2020 by Crow Bradford MD at [facility] Right: Knee [employer] - [employer]IA [employer] SONIA [id number] 04/15/2022 0 / / [id number] Delta Xtend Locking Metaglene Screw 4.5 Lg 30mm Implanted:Qty: 1 on 03/10/2022 by Crow Bradford MD at [facility] Left: Shoulder DEPUY [id number] 09/15/2026 0 / / [id number] Delta Xtend Non-Locking Metaglene Screw 4.5 Lg 18mm Implanted:Qty: 1 on 03/10/2022 by Crow Bradford MD at [facility] Left: Shoulder DEPUY [id number] 10/16/2026 8 / / [id number] Delta Xtend Lateralized Glenosphere +2mm 38mm Standard Implanted:Qty: 1 on 03/10/2022 by Crow Bradford MD at [facility] Left: Shoulder DEPUY [id number] 10/16/2026 8 / / [id number] Delta Xtend Reverse Shoulder System Central Screw Metaglene Collet Implanted:Qty: 1 on 03/10/2022 by Crow Bradford MD at [facility] Left: Shoulder DEPUY [id number] 10/16/2026 1 / / [id number] Delta Xtend Reverse Shoulder System Central Metaglene Screw 6m X 20mm Implanted:Qty: 1 on 03/10/2022 by Crow Bradford MD at [facility] Left: Shoulder DEPUY [id number] 02/15/2031 0 / / [id number] Delta Xtend Reverse Shoulder System Central Screw Metaglene Standard Cementless Implanted:Qty: 1 on 03/10/2022 by Crow Bradford MD at [facility] Left: Shoulder DEPUY [id number] 09/16/2031 0 / / [id number] Delta Xtend Modular 155 Degree Epiphysis Size 1 Left Porocoat Implanted:Qty: 1 on 03/10/2022 by Crow Bradford MD at [facility] Left: Shoulder DEPUY [id number] 07/16/2030 2 / / [id number] Explanted Type Area Special Services Coordinator Device Identifier Shelf Expiration Date Model / Serial / Lot Drill Bit Depuy 2.5 - [id number] Explanted:Qty: 1 on 03/10/2022 by Crow Bradford MD at [facility] Drill Left: Shoulder DEPUY [id number] / / Drill Bit Depuy 2.5 - [id number] Explanted:Qty: 1 on 10/25/2018 at [facility] Right: Shoulder DEPUY [id number] / / 2.5 Pin Explanted:Qty: 1 on 03/10/2022 by Crow Bradford MD at [facility] Left: Shoulder DEPUY [id number] / / Procedures Procedure Name Priority Date/Time Associated Diagnosis Comments REMV CATARACT EXTRACAP,INSERT LENS 05/16/2024 11:50 AM CDT H25.12 Case Notes C BONE DENSITY/DEXA Routine 06/17/2022 10: 00 AM [...] or have additional risk factors. Ordered By: RDAGAN PERRY Interpreted By: Milo Borden, 06/17/2022 4:54 [...] or have additional risk factors. Ordered By: DRAGAN PERRY Interpreted By: Milo Borden, 06/17/2022 4:54 PM Dragan Perry MD DEXA Final Result from Last 3 Months or Most Recently Relevant to Health Maintenance Insurance Advance Directives * Full Code (Latest Code Status on File) Date Activated Date Inactivated Comments 03/13/2022 4:17 PM 05/16/2024 10:52 AM * Full Code Date Activated Date Inactivated Comments 03/10/2022 2:43 PM 03/11/2022 2:56 PM Care Teams Rn Allergy Relationship Specialty Start Date End Date Genaro Witt MD [address] [place] [address] PCP - General INTERNAL MEDICINE 10/01/22
== END 2024-06-13 13:51 | disposition home or self-care (01) ==
LOC: CHSLAB 13:52
PROVIDERS: PCP Internal Medicine; Visit Provider Internal Medicine
DX: E89.0 Postprocedural hypothyroidism (principal); N18.2 Chronic kidney disease, stage 2 (mild)
CPT/HCPCS: 36415; 80048; 84439; 84443; 84481

== ENCOUNTER 2024-06-15 10:05 | Outpatient (RCR) | payer MEDICARE, SELFPAY ==
--- NOTE | 2024-07-07 15:23 | PCPTNOTE ---
Patient called & cancelled scheduled appointment this date due to car broke down.
--- NOTE | 2024-07-15 17:05 | OPREHPOC ---
Outpatient Therapy Plan of Care This is a Multidisciplinary Plan of Care that may contain components documented by all disciplines (PT, OT, and ST.) PT Problem 1 PT Problem #1 Knowledge Deficit PT Goal 1 Goal / Goal Update The patient will be independent in a home exercise program. 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 Target Visit 12 Progress Not Met PT Problem 3 PT Problem #3 Impaired Functional Mobility PT Goal 1 Goal / Goal Update The patient will demonstrate 0% self perceived disability per the LEFS questionnaire. The patient will demonstrate the ability to lift 30# from floor to waist with proper body mechanics and no hip pain to simulate lifting household items. - met The patient will ambulate 1,200 feet during the 6 minute walk test without left hip pain to improve community ambulation. -met Target Visit 12 Progress Partially Met PT Problem 4 PT Problem #4 Impaired Strength PT Goal 1 Goal / Goal Update The patient will demonstrate 4/5 bilateral gluteus medius strength to support the hip for yard work and recreational activities. met Target Visit 12 Progress Met
--- NOTE | 2024-07-15 17:05 | PTOPPROGNS ---
Assessment and note entered by JT File, PT Evaluation Information Assessment Status Progress ICD-10 Condition Codes (PT) Pain in left hip M25.552 Onset 06/13/24 Subjective Information Le reports that she is doing good today. She reports that she cleaned a house today and rann errands, and it hasnt increased the pain. Pt states that after having an active day she will make up the next morning with buttock pain on the L that feels stiff and achy. Pt also reported that while scrubbing her foot and bending forward and to the side she got buttock pain on the R. Pt reported that she has been doing her HEP everyday along with an hour of her stationary bike. Assessment PT Clinical Summary Le completed her 10th skilled PT visit for L hip pain. She has met some of her goals, but still has pain and deficits in LE strength. Continue Skilled PT to work towards pts goals, functional strength, and to improve pts quality of life. Plan of Care Interventions Electrical Stimulation,Hot Pack/Cold Pack,Manual Therapy,Neuro Re-education,Patient/Caregiver Education,Therapeutic Activities,Therapeutic Exercise PT Services Indicated Yes Treatment Frequency and 3 times a week for 12 visits Duration These treatments will address the objective and functional deficits as defined above. The patient will be advanced safely and appropriately in order for the patient to progress towards his/her prior level of function. Additional exercises will be introduced and as well as a comprehensive home exercise program upon discharge, if needed, ?to ensure carryover of functional gains achieved in the clinic. This treatment plan has been reviewed and agreement upon by the patient.
--- NOTE | 2024-07-21 16:14 | OPREHPOC ---
Outpatient Therapy Plan of Care This is a Multidisciplinary Plan of Care that may contain components documented by all disciplines (PT, OT, and ST.) PT Problem 1 PT Problem #1 Knowledge Deficit PT Goal 1 Goal / Goal Update The patient will be independent in a home exercise program. 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 Target Visit 12 Progress Not Met PT Problem 3 PT Problem #3 Impaired Functional Mobility PT Goal 1 Goal / Goal Update The patient will demonstrate 0% self perceived disability per the LEFS questionnaire. The patient will demonstrate the ability to lift 30# from floor to waist with proper body mechanics and no hip pain to simulate lifting household items. - met The patient will ambulate 1,200 feet during the 6 minute walk test without left hip pain to improve community ambulation. -met Target Visit 12 Progress Partially Met PT Problem 4 PT Problem #4 Impaired Strength PT Goal 1 Goal / Goal Update The patient will demonstrate 4/5 bilateral gluteus medius strength to support the hip for yard work and recreational activities. met Target Visit 12 Progress Met
--- NOTE | 2024-07-21 16:16 | OPREHPOC ---
Outpatient Therapy Plan of Care This is a Multidisciplinary Plan of Care that may contain components documented by all disciplines (PT, OT, and ST.) PT Problem 1 PT Problem #1 Knowledge Deficit PT Goal 1 Goal / Goal Update The patient will be independent in a home exercise program. 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 Target Visit 12 Progress Not Met PT Problem 3 PT Problem #3 Impaired Functional Mobility PT Goal 1 Goal / Goal Update The patient will demonstrate 0% self perceived disability per the LEFS questionnaire. The patient will demonstrate the ability to lift 30# from floor to waist with proper body mechanics and no hip pain to simulate lifting household items. - met The patient will ambulate 1,200 feet during the 6 minute walk test without left hip pain to improve community ambulation. -met Target Visit 12 Progress Partially Met PT Problem 4 PT Problem #4 Impaired Strength PT Goal 1 Goal / Goal Update The patient will demonstrate 4/5 bilateral gluteus medius strength to support the hip for yard work and recreational activities. met Target Visit 12 Progress Met PT Goal 2 Goal / Goal Update Pt to improve L hip strength to 5/5. Target Visit 18
--- NOTE | 2024-07-21 16:16 | PTOPPROG ---
Assessment and note entered by Norma Ott, PT Evaluation Information Assessment Status Progress ICD-10 Condition Codes (PT) Pain in left hip M25.552 Onset 06/13/24 Subjective Information Pt reports she feels 75% improved since beginning PT. She reports her pain varies depending on what and how much she does during the day. She currently reports her pain is around a 5/10 and can get up to a 7/10 or more when doing house/yard work and it causes her to sit down to help relieve the pain. She also notes new onset of R sided back/flank pain a week and a half ago. She sees her doctor on Thursday and plans to discuss both her hip and this new pain with him. Assessment PT Clinical Summary Mrs. 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 Since beginning PT she has made good progress in her hip strength and has also met goals addressing ambulation tolerance and lifting for household tasks. Despite meeting these goals, she still experiences moderate to severe L hip pain and has also started to develop some R sided back/flank region pain. It is recommended she discuss her continued hip pain and this new back pain with her doctor when she sees him next week. Pt will benefit from continued skilled PT to address pain and functional hip strength to be able to perform daily tasks with less difficulty and improved quality of life. Plan of Care Interventions Electrical Stimulation,Hot Pack/Cold Pack,Manual Therapy,Neuro Re-education,Patient/Caregiver Education,Therapeutic Activities,Therapeutic Exercise PT Services Indicated Yes Treatment Frequency and 2x/week for 6 additional visits Duration These treatments will address the objective and functional deficits as defined above. The patient will be advanced safely and appropriately in order for the patient to progress towards his/her prior level of function. Additional exercises will be introduced and as well as a comprehensive home exercise program upon discharge, if needed, ?to ensure carryover of functional gains achieved in the clinic. This treatment plan has been reviewed and agreement upon by the patient.
--- NOTE | 2024-09-08 13:11 | OPREHPOC ---
Outpatient Therapy Plan of Care This is a Multidisciplinary Plan of Care that may contain components documented by all disciplines (PT, OT, and ST.) PT Problem 1 PT Problem #1 Knowledge Deficit PT Goal 1 Goal / Goal Update The patient will be independent in a home exercise program. 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 Target Visit 12 Progress Not Met PT Problem 3 PT Problem #3 Impaired Functional Mobility PT Goal 1 Goal / Goal Update The patient will demonstrate 0% self perceived disability per the LEFS questionnaire. The patient will demonstrate the ability to lift 30# from floor to waist with proper body mechanics and no hip pain to simulate lifting household items. - met The patient will ambulate 1,200 feet during the 6 minute walk test without left hip pain to improve community ambulation. -met Target Visit 12 Progress Partially Met PT Problem 4 PT Problem #4 Impaired Strength PT Goal 1 Goal / Goal Update The patient will demonstrate 4/5 bilateral gluteus medius strength to support the hip for yard work and recreational activities. met Target Visit 12 Progress Met PT Goal 2 Goal / Goal Update Pt to improve L hip strength to 5/5. Target Visit 18
--- NOTE | 2024-09-08 13:12 | PTOPDC ---
Assessment and note entered by Norma Ott, PT Evaluation Information Assessment Status Discharge - Pt Not Present ICD-10 Condition Codes (PT) Pain in left hip M25.552 Onset 06/13/24 Subjective Information See below Assessment PT Clinical Summary Mrs. 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 She demonstrated good progress in PT and met goals addressing ambulation tolerance and lifting for household tasks. Despite this progress she continued to have pain and was advised to return to her doctor for further assessment. Since then we have not heard back about this pt and her insurance authorization has . Will discharge her from skilled PT this date and will resume therapy per MD order as appropriate. Plan of Care PT Services Indicated No
== END 2024-07-21 20:00 | disposition home or self-care (01) ==
LOC: CHSPT 10:05
PROVIDERS: PCP Internal Medicine; Visit Provider Internal Medicine
DX: M25.552 Pain in left hip (principal); M76.02 Gluteal tendinitis, left hip
CPT/HCPCS: 97014; 97110; 97112; 97140; 97161; 97530; G0283

== ENCOUNTER 2024-07-12 15:44 | Outpatient (CLI) | payer MEDICARE, SELFPAY ==
--- NOTE | 2024-07-12 15:53 | ECHO_ITS ---
Patient Info Name: Le Carvajal Age: 83 years : 1940 Gender: Female Ht: 62 in Wt: 160 lbs BSA: 1.81 m2 HR: 79 bpm BP: 170 / 79 mmHg Heart Rhythm: Sinus Rhythm Technical Quality: Good Exam Date: 07/12/2024 4:13 PM Patient Status: O Admit Date: 07/12/2024 Exam Type: CA echo doppler color flow Complete two-dimensional, color flow and Doppler transthoracic echocardiogram is performed. Beam Press Operator: Jeanette Romero Attending Provider: Genaro Witt MD Summary 1. Complete two-dimensional, color flow and Doppler transthoracic echocardiogram is performed. 2. Left ventricular chamber dimension is normal. 3. Left ventricular systolic function is normal, estimated at 65-70. 4. There is mild concentric increased left ventricular wall thickness. 5. The left ventricular diastolic function is grade I diastolic dysfunction. 6. E/e' 11 is mildly elevated. 7. The mitral valve has a moderately calcified annulus. 8. There is mild tricuspid valve regurgitation. 9. No pulmonary hypertension, estimated pulmonary arterial systolic pressure is 28 mmHg. Left Ventricle E/e' 11 is mildly elevated. Left ventricular chamber dimension is normal. Left ventricular systolic function is normal, estimated at 65-70. There is mild concentric increased left ventricular wall thickness. The left ventricular diastolic function is grade I diastolic dysfunction. Right Ventricle Right ventricular chamber dimension is normal. Right ventricular systolic function is normal. and with normal TAPSE 2.8 cm. Left Atria Left atrial chamber dimension is normal. Right Atria Right atrial chamber dimension is normal. Aortic Valve The aortic valve is trileaflet. There is no aortic valve stenosis. There is no aortic valve regurgitation. Pulmonic Valve There is no pulmonic regurgitation. Mitral Valve The mitral valve has a moderately calcified annulus. There is no mitral valve stenosis. There is no mitral valve regurgitation. Tricuspid Valve There is mild tricuspid valve regurgitation. No pulmonary hypertension, estimated pulmonary arterial systolic pressure is 28 mmHg. Pericardium/Pleural There is no pericardial effusion. Inferior Vena Cava Normal inferior vena cava with >50% collapse upon inspiration consistent with normal right atrial pressure, 5 mmHg. Aorta The aortic root size at the sinus of Valsalva is normal. Left Ventricular Outflow Tract Name Value Normal LVOT 2D LVOT Diameter 1.8 cm LVOT Doppler LVOT Peak Velocity 114 cm/s LVOT Peak Gradient 5 mmHg LVOT Mean Gradient 3 mmHg LVOT VTI 24 cm LVOT VTI/AV VTI Ratio 0.6 LVOT Stroke Volume 58 ml LVOT CO 4.2 l/min LVOT CI 2.3 l/min/m2 Mitral Valve Name Value Normal MV Diastolic Function MV E Peak Velocity 97 cm/s MV A Peak Velocity 135 cm/s MV E/A 0.7 MV Decel Time (PW) 198 ms MV Annular TDI MV E/e' (Septal) 12.1 MV E/e' (Lateral) 11.4 MV E/e' (Average) 11.7 Tricuspid Valve Name Value Normal TV Regurgitation Doppler TR Peak Velocity 239 cm/s TR Peak Gradient 22 mmHg Estimated PAP/RSVP RA Pressure 5 mmHg <=5 PA Systolic Pressure 28 mmHg <36 RV Systolic Pressure 28 mmHg <36 TV Annular TDI TV Lateral Angelina s' Velocity 12.6 cm/s >=9.5 Aortic Valve Name Value Normal AV Doppler AV Peak Velocity 196 cm/s AV Peak Gradient 15 mmHg AV Mean Gradient 9 mmHg AV VTI 42 cm AV Area (Cont Eq VTI) 1.4 cm2 >=3.0 AV Area (Cont Eq Mitesh) 1.4 cm2 AV DI (Mitesh) 0.58 AV Regurgitation 2D LVOT Area 2.4 cm2 Ventricles Name Value Normal LV Dimensions 2D/MM IVS Diastolic Thickness (2D) 1.3 cm 0.6-1.0 LVID Diastole (2D) 3.6 cm 3.8-5.2 LVIW Diastolic Thickness (2D) 1.1 cm 0.6-0.9 LVID Systole (2D) 2.3 cm 2.2-3.5 LVOT Diameter 1.8 cm LV Mass (2D Cubed) 136.52 g 67.00-162.00 LV Mass Index (2D Cubed) 76 g/m2 43-95 Relative Wall Thickness (2D) 0.59 <=0.42 LV Fractional Shortening/Ejection Fraction 2D/MM LV Fractional Shortening (2D) 35 % 27-45 LV EF (2D Teichholz) 66 % LV Diastolic Volume (4C MOD) 72 ml LV EF (4C MOD) 68 % LV Diastolic Volume (2C MOD) 86 ml LV EF (2C MOD) 80 % LV Diastolic Volume (BP MOD) 79 ml 46-106 LV Diastolic Volume Index (BP MOD) 44 ml/m2 29-61 LV Systolic Volume (BP MOD) 17 ml 14-42 LV Systolic Volume Index (BP MOD) 9 ml/m2 8-24 LV EF (BP MOD) 79 % 54-74 LV Diastolic Length (4C) 8.3 cm LV Systolic Length (4C) 6.1 cm LV Stroke Volume (4C MOD) 49 ml Atria Name Value Normal LA Dimensions LA Volume (4C A-L) 49 ml LA Volume (BP A-L) 49 ml RA Dimensions RA Systolic Major [place] Length (4C) 4.3 cm 2.2-2.8 RA Area (4C) 10.4 cm2 <=18.0 Report Signatures
== END 2024-07-12 15:45 | disposition home or self-care (01) ==
LOC: CHSIMG 15:47
PROVIDERS: PCP Internal Medicine; Visit Provider Internal Medicine
DX: M81.0 Age-related osteoporosis without current pathological fracture (principal); I08.1 Rheumatic disorders of both mitral and tricuspid valves
CPT/HCPCS: 93306

== ENCOUNTER 2024-07-13 09:51 | Outpatient (CLI) | payer MEDICARE, SELFPAY ==
--- NOTE | ~2024-07-13 | MM_ITS ---
EXAMINATION: MM screening pardeep BI w taylor HISTORY: Screening TECHNIQUE: Craniocaudal and mediolateral oblique 3-D tomosynthesis images were obtained and synthetic 2-D images were generated. CAD analysis was submitted and interpreted. COMPARISON: No prior mammogram is available for comparison at this institution. BREAST PARENCHYMAL COMPOSITION: Not dense: There are scattered areas of fibroglandular density. FINDINGS: There are small bilateral obscured masses in both breasts. There is architectural distortio n in the upper outer quadrant of the right breast, middle third. There are benign bilateral breast ca lcifications. IMPRESSION: 1. Focal architectural distortion upper outer quadrant of the right breast. Obscured bilateral breast masses. 2. Comparison to previous outside mammograms recommended. BI-RADS Category 0: Incomplete: Needs additional imaging evaluation. Reviewed, dictated and finalized at location A. IMPRESSION: 1. Focal architectural distortion upper outer quadrant of the right breast. Obs cured bilateral breast masses. 2. Comparison to previous outside mammograms recommended. BI-RADS Category 0: Incomplete: Needs additional imaging evaluation.
== END 2024-07-13 09:52 | disposition home or self-care (01) ==
LOC: CHSIMG 09:54
PROVIDERS: PCP Internal Medicine; Visit Provider Internal Medicine
DX: Z12.31 Encounter for screening mammogram for malignant neoplasm of breast (principal)
CPT/HCPCS: 77063; 77067

== ENCOUNTER 2024-08-12 08:48 | Outpatient (CLI) | payer MEDICARE, SELFPAY ==
--- NOTE | ~2024-08-12 | MMUS_ITS ---
EXAMINATION: MM diagnostic pardeep BI w taylor, US breast BI limited HISTORY: Right breast distortion, bilateral breast masses TECHNIQUE: Additional 3-D tomosynthesis images of the breasts were performed and synthetic 2-D images were generated. CAD analysis was submitted and interpreted. High resolution limited bilateral breast ultrasound was performed. COMPARISON: 07/13/2024 BREAST PARENCHYMAL COMPOSITION:Not Dense. There are scattered areas of fibroglandular density. FINDINGS: MAMMOGRAPHIC FINDINGS: The area of distortion at the upper, outer right breast effaces with spot compression. No persistent mass lesion or distortion seen in this region. Small low-density round masses are seen in the lower, inner quadrants bilaterally on spot compression views. ULTRASOUND: At the left breast 8:00 position, 4 cm from the nipple, there is a 7 mm anechoic ovoid circumscribed cyst. No sonographic abnormality seen in the lower, inner right breast. IMPRESSION: Subcentimeter lower, inner quadrant right breast mass without sonographic correlate. This is most lik angel benign. Six-month follow-up right breast mammography recommended. 7 mm simple left breast cyst at the lower, inner quadrant. No distinct evidence for malignancy. BI-RADS category 3, probably benign findings. Reviewed, dictated and finalized at location . IMPRESSION: Subcentimeter lower, inner quadrant right breast mass without sonographic corre late. This is most likely benign. Six-month follow-up right breast mammography recommended. 7 mm simple left breast cyst at the lower, inner quadrant. No distinct evidence for malignancy. BI-RADS category 3, probably benign findings.
== END 2024-08-12 08:49 | disposition home or self-care (01) ==
LOC: CHSIMG 08:49
PROVIDERS: PCP Internal Medicine; Visit Provider Internal Medicine
DX: R92.8 Other abnormal and inconclusive findings on diagnostic imaging of breast (principal)
CPT/HCPCS: 76642; 77062; 77066; G0279

== ENCOUNTER 2024-10-20 14:04 | Outpatient (CLI) | payer MEDICARE, SELFPAY ==
--- NOTE | ~2024-10-20 | XR_ITS ---
Clinical history:Low back pain. Joint pain EXAM:X-ray sacroiliac joints minimum 3 views TECHNIQUE:3 images were obtained. Comparisons:None available FINDINGS: Bones appear osteopenic. There is bowel gas and stool projecting over the pelvis which limits evaluation. No fracture. No dislocation. Moderate degenerative change in the hips, pubic symphysis and sacroiliac joints. IMPRESSION: 1. No fracture. 2. Moderate degenerative change in the sacral iliac joints. If symptoms persist or worsen, consider a short-term follow-up study or MRI imaging for further assessment. Reviewed, dictated and finalized at location Q. IMPRESSION: 1. No fracture. 2. Moderate degenerative change in the sacral iliac joints. If symptoms persist or worsen, consider a short-term follow-up study or MRI renea ging for further assessment.
--- NOTE | ~2024-10-20 | XR_ITS ---
EXAMINATION: XR lumbar spine 2-3V DATE: 10/20/2024 14:37 INDICATION: Low back pain. TECHNIQUE: 3 images of the lumbar spine were obtained. COMPARISON: None. FINDINGS: Mild dextroconvex curvature of the lumbar spine. Bones appear osteopenic. Mild dextroconvex curvature of the lumbar spine. No compression fracture in the lumbar spine. Grade 1 retrolisthesis of L2 on L3 and L3 on L4. Severe intervertebral disc space narrowing throughout the lumbar spine. Anterior osteophytosis in the lumbar spine. Severe degenerative change in the lower lumbar facet joints. IMPRESSION: 1. No compression fracture and lumbar spine. 2. Grade 1 retrolisthesis of L2 on L3 and L3 on L4. 3. Severe degenerative change in the lumbar spine as detailed above. If symptoms persist or worsen, consider an MRI of the lumbar spine for further assessment. Reviewed, dictated and finalized at location Q.
--- OUTSIDE RECORDS SUMMARY | 2024-10-20 14:20 | XMS_ITS | Encounter Summary ---
Author Organization [facility] Address [facility] [place] [address] Care Team Providers Care Thread Spooler Name Role Phone Kannan So MD Primary Care Provider [phone] Genaro Witt MD Primary Care Provider [phone] Encounter Details Date Type Department Care Team (Late st Contact Info) Description 07/24/2018 Abstract SFL CONVERSION [address] [place] [address] , Generic MD Curtis Social History Tobacco Use Types Packs/Day Years Used Date Smoking Tobacco: Never Smokeless Tobacco: Never Alcohol Use Standard Drinks/Week Comments Yes 0 (1 standard drink = 0.6 oz pur e alcohol) occasional Comments Unknown Sex and Gender Information Value Date Recorded Sex Assigned at Female 03/03/2018 8:38 AM DESK ASSISTANT Legal Sex Female 7:55 PM CDT Gender Identity Female 03/03/2018 8:38 AM DESK ASSISTANT Sexual Orientation Not on file documented as of this encounter Plan of Treatment Not on file documented as of this encounter Visit Diagnoses Not on filedocumented in this encounter Additional Health Concerns Infection Onset Date Last Indicated Resolved Time COVID-19 Rule Out 02/17/2020 02/17/2020 02/19/2020 9:31 AM DESK ASSISTANT COVID-19 Rule Out 10/10/2020 10/10/2020 10/10/2020 10:58 AM CDT COVID-19 Rule Out 10/10/2020 10/10/2020 10/10/2020 10:50 PM CDT documented as of this encounter Care Teams Thread Spooler Relationship Specialty Start Date End Date Kannan So MD [address] [place] [address] PCP - General FAMILY PRACTICE 03/02/18 09/30/22 Genaro Witt MD [address] [place] [address] PCP - General INTERNAL MEDICINE 10/01/22 documented as of this encounter
--- OUTSIDE RECORDS SUMMARY | 2024-10-20 14:20 | XMS_ITS | Encounter Summary ---
Author Organization [facility] Address [facility] [place] [address] Care Team Providers Care Window Cleaner Name Role Phone Kannan So MD Primary Care Provider [phone] Genaro Witt MD Primary Care Provider [phone] Encounter Details Date Type Department Care Team (Late st Contact Info) Description 04/29/2022 Hospital Orders Only [facility] [address] [place] [address] Keshawn Figueroa, DPT Social History Tobacco Use Types Packs/Day Years Used Date Smoking Tobacco: Never Smokeless Tobacco: Never Alcohol Use Standard Drinks/Week Comments Yes 0 (1 standard drink = 0.6 oz pur e alcohol) occasional Comments No Sex and Gender Information Value Date Recorded Sex Assigned at Female 03/03/2018 8:38 AM STRATEGIC DEBRIEFING SPECIALIST Legal Sex Female 7:55 PM CDT Gender Identity Female 03/03/2018 8:38 AM STRATEGIC DEBRIEFING SPECIALIST Sexual Orientation Not on file COVID-19 Exposure [...] Assessment Author Status No 03/10/2022 1:47 PM STRATEGIC DEBRIEFING SPECIALIST Activ e * RETIRED Are you blind or do you have serious difficulty seeing, even when wearing glasses? Answer Date of Assessment Author Status No 03/10/2022 1:47 PM STRATEGIC DEBRIEFING SPECIALIST Activ e * Do you have serious [...] on filedocumented in this encounter Care Teams Window Cleaner Relationship Specialty Start Date End Date Kannan So MD [address] [place] [id number] PCP - General FAMILY PRACTICE 03/02/18 09/30/22 Genaro Witt MD [address] [place] [address] PCP - General INTERNAL MEDICINE 10/01/22 documented as of this encounter
--- OUTSIDE RECORDS SUMMARY | 2024-10-20 14:21 | XMS_ITS | Clinical Summary ---
Author Organization [facility] Address [address] [place] [address] Care Team Providers Care Ammonium Hydroxide Operator Name Role Phone Genaro Witt MD Primary Care Provider [phone] Allergies No known active allergies Medications levothyroxine [...] hours as needed. Indications: Pain Alternating with [place]. 3 Active acetaminophen (TYLENOL) 500 MG tabletIndicatio [...] Encounters Date Type Department Care Team Description 08/08/2024 11:11 AM CDT Anesthesia Event [facility] [address] [place] [address] Gaviota Camacho CRNA Bell, Lisa M, CRNA 08/08/2024 11:04 AM CDT - 08/08/2024 11:42 AM CDT Surgery [facility] [address] [place] [address] Fam Orozco MD CATARACT REMOVAL WITH IOL IMPLANT 08/08/2024 9:37 AM CDT - 08/08/2024 11:50 AM CDT Hospital Encounter [facility] [address] [place] [address] Fam Orozco MD Discharge Disposition: Home or Self Care (Routine Discharge) 08/08/2024 Travel from Last 3 Months Immunizations Immunization [...] Sex Assigned at Female 03/03/2018 8:38 AM MEDICAL RECORDS FIELD TECHNICIAN Legal Sex Female 7:55 PM CDT Gender Identity Female 03/03/2018 8:38 AM MEDICAL RECORDS FIELD TECHNICIAN Sexual Orientation Not on file Last Filed Vital Signs Vital Sign Reading Time Taken Comments Blood Pressure 142/76 08/08/2024 11:45 AM CDT Pulse 86 08/08/2024 11:45 AM CDT Temperature 36.2 C (97.1 F) 08/08/2024 10:18 AM CDT Respiratory Rate 17 08/08/2024 11:45 AM CDT Oxygen Saturation 98% 08/08/2024 11:45 AM CDT Inhaled Oxygen Concentration - - Weight 73 kg (161 lb) 08/08/2024 10:13 AM CDT Height 157.5 cm (5' 2) 08/08/2024 10:13 AM CDT Body Mass Index 29.45 08/08/2024 10:13 AM CDT Plan of Treatment Health Maintenance [...] from hospital Lifestyle No Andie Sanchez RN Medical Devices Implanted Type Area [employer] Lieutenant Device Identifier Shelf Expiration Date Model / Serial / Lot Cement Simplex Hv W/Gentamicin - [id number] Implanted:Qty: 2 on 02/20/2020 by Crow Bradford MD at [facility] Cement Implant Right: Knee [employer]ER [employer] - DIV EBENEZER LIA 11/15/2020 6195-1-010 / / [id number] Stem Humeral 121mm 12mm Modular Global Unite Porous Standard Shoulder Platform Arthroplasty System - [id number] Implanted:Qty: 1 on 03/10/2022 by Crow Bradford MD at [facility] Humeral Left: Shoulder DEPUY [id number] 12/17/2031 [id number] / / [id number] Humeral Standard Delta Xtend Depuy - [id number] Implanted:Qty: 1 on 03/10/2022 by Crow Bradford MD at [facility] Humeral Left: Shoulder DEPUY [id number] 10/16/2026 [id number] / / [id number] Iol Kalyan Cca0t0 - [id number] Implanted:Qty: 1 on 05/16/2024 by Fam Orozco MD at [facility] Lens Left: Eye K[employer]YAN - SURGICAL DIV [id number] 01/01/2027 CCA0T0 / [id number] / Iol Kalyan Cca0t0 - [id number] Implanted:Qty: 1 on 08/08/2024 by Fam Orozco MD at [facility] Lens Right: Eye K[employer] - SURGICAL DIV [id number] 01/24/2027 CCA0T0 / [id number] / Component Ptlr 32mm Medialize Dome Attune - [id number] Implanted:Qty: 1 on 02/20/2020 by Crow Bradford MD at [facility] Patella Right: Knee [employer] - [employer] SONIA [employer] SONIA [id number] 12/16/2024 [id number] / / [id number] Description:*Unable to add SFL OR to inventory location in above information Screw Locking Depuy Delta Xtend Lg 36mm - [id number] Implanted:Qty: 1 on 03/10/2022 by Crow Bradford MD at [facility] Screw Left: Shoulder DEPUY [id number] 12/16/2026 [id number] / / [id number] Screw Locking Depuy Delta Xtend Lg 30mm - [id number] Implanted:Qty: 1 on 03/10/2022 by Crow Bradford MD at [facility] Screw Left: Shoulder DEPUY [id number] 09/15/2026 [id number] / / [id number] Metaglene Depuy Delta Xtend - [id number] Implanted:Qty: 1 on 10/25/2018 by Crow Bradford MD at [facility] Right: Shoulder DEPUY 05/17/2023 [id number] / / [id number] Screw Locking Depuy Delta Xtend Lg 36mm - [id number] Implanted:Qty: 1 on 10/25/2018 by Crow Bradford MD at [facility] Right: Shoulder DEPUY 03/18/2023 [id number] / / [id number] Screw Locking Depuy Delta Xtend Lg 30mm - [id number] Implanted:Qty: 1 on 10/25/2018 by Crow Bradford MD at [facility] Right: Shoulder DEPUY 04/16/2023 [id number] / / [id number] Screw Non Locking Depuy Delta Xtend Lg 18mm - [id number] Implanted:Qty: 1 on 10/25/2018 by Crow Bradford MD at [facility] Right: Shoulder DEPUY 06/16/2023 [id number] / / [id number] Screw Non Locking Depuy Delta Xtend Lg 18mm - [id number] Implanted:Qty: 1 on 10/25/2018 by Crow Bradford MD at [facility] Right: Shoulder DEPUY 04/16/2023 [id number] / / [id number] Glenosphere Eccentric Depuy 38mm - [id number] Implanted:Qty: 1 on 10/25/2018 by Crow Bradford MD at [facility] Right: Shoulder DEPUY 06/16/2023 [id number] / / [id number] Epiphysis Delta Xtend Depuy Size 1 Right - [id number] Implanted:Qty: 1 on 10/25/2018 by Crow Bradford MD at [facility] Right: Shoulder DEPUY 04/16/2023 [id number] / / [id number] Global Unite Porocoat Standard Stem Implanted:Qty: 1 on 10/25/2018 by Crow Bradford MD at [facility] Right: Shoulder 11/16/2027 1099-11-25 0 / / [id number] Cup Humeral Standard Delta Xtend Depuy - [id number] Implanted:Qty: 1 on 10/25/2018 by Crow Bradford MD at [facility] Right: Shoulder DEPUY 05/17/2023 [id number] / / [id number] Attune Femoral Cruciate Retaining Size 4 Right Cemented Implanted:Qty: 1 on 02/20/2020 by Crow Bradford MD at [facility] Right: Knee [employer] - [employer] S[employer]IA [id number] 08/15/2029 4 / / [id number] Baseplate Tibial Attune 4 Knee Cement Rotate Platform Sterile - [id number] Implanted:Qty: 1 on 02/20/2020 by Crow Bradford MD at [facility] Right: Knee DEPUY [id number] 11/15/2029 [id number] / / [id number] Attune Tibial Insert Rotating Platform Cruciate Retaining Size 4 Implanted:Qty: 1 on 02/20/2020 by Crow Bradford MD at [facility] Right: Knee [employer] - [employer] SONIA [id number] 04/15/2022 0 / / [id number] Delta Xtend Locking Metaglene Screw 4.5 Lg 30mm Implanted:Qty: 1 on 03/10/2022 by Crow Bradford MD at [facility] Left: Shoulder DEPUY [id number] 09/15/2026 0 / / [id number] Delta Xtend Non-Locking Metaglene Screw 4.5 Lg 18mm Implanted:Qty: 1 on 03/10/2022 by Crow Bradford MD at [facility] Left: Shoulder DEPUY [id number] 10/16/2026 8 / / [id number] Delta Xtend Lateralized Glenosphere +2mm 38mm Standard Implanted:Qty: 1 on 03/10/2022 by Crow Bradford MD at [facility] Left: Shoulder DEPUY [id number] 10/16/2026 8 / / [id number] Delta Xtend Reverse Shoulder System Central Screw Metaglene Collet Implanted:Qty: 1 on 03/10/2022 by Crow Bradford MD at [facility] Left: Shoulder DEPUY [id number] 10/16/2026 1 / / [id number] Delta Xtend Reverse Shoulder System Central Metaglene Screw 6m X 20mm Implanted:Qty: 1 on 03/10/2022 by Corw Bradford MD at [facility] Left: Shoulder DEPUY [id number] 02/15/2031 0 / / [id number] Delta Xtend Reverse Shoulder System Central Screw Metaglene Standard Cementless Implanted:Qty: 1 on 03/10/2022 by Crow Bradford MD at [facility] Left: Shoulder DEPUY [id number] 09/16/2031 0 / / [id number] Delta Xtend Modular 155 Degree Epiphysis Size 1 Left Porocoat Implanted:Qty: 1 on 03/10/2022 by Crow Bradford MD at [facility] Left: Shoulder DEPUY [id number] 07/16/2030 2 / / [id number] Explanted Type Area [employer] Lieutenant Device Identifier Shelf Expiration Date Model / Serial / Lot Drill Bit Depuy 2.5 - [id number] Explanted:Qty: 1 on 03/10/2022 by Crow Bradford MD at [facility] Drill Left: Shoulder DEPUY [id number] / / Drill Bit Depuy 2.5 - [id number] Explanted:Qty: 1 on 10/25/2018 at [facility] Right: Shoulder DEPUY [id number] / / 2.5 Pin Explanted:Qty: 1 on 03/10/2022 by Crow Bradford MD at [facility] Left: Shoulder DEPUY [id number] / / Procedures Procedure Name Priority Date/Time Associated Diagnosis Comments REMV CATARACT EXTRACAP,INSERT LENS 08/08/2024 11:10 AM CDT H25.11 Case Notes C BONE DENSITY/DEXA Routine 06/17/2022 [...] on File) Date Activated Date Inactivated Comments 08/08/2024 10:31 AM 08/08/2024 1:50 PM * Full Code Date Activated Date Inactivated Comments 03/13/2022 4:17 PM 05/16/2024 10:52 AM * Full Code Date Activated Date Inactivated Comments 03/10/2022 2:43 PM 03/11/2022 2:56 PM Care Teams Ammonium Hydroxide Operator Relationship Specialty Start Date End Date Genaro Witt MD [address] [place] [id number] PCP - General INTERNAL MEDICINE 10/01/22
== END 2024-10-20 14:05 | disposition home or self-care (01) ==
LOC: CHSIMG 14:08
PROVIDERS: PCP Internal Medicine; Visit Provider Internal Medicine
DX: M54.50 Low back pain, unspecified (principal); M43.16 Spondylolisthesis, lumbar region
CPT/HCPCS: 72100; 72202

== ENCOUNTER 2024-11-28 12:52 | Outpatient (CLI) | payer MEDICARE, SELFPAY ==
--- NOTE | ~2024-11-28 | DEXA_ITS ---
Bone Density Report Name: ERIKA ALBARRAN Age: 84 Sex: Female Ethnicity: White Date of : 1940 Indication: postmenopausal; screening for osteoporosis; parental hip fracture; Referring Provider: ILSA, ALESSANDRO Reddy Study: Bone densitometry was performed. Exam Date: November 28, 2024 Accession number: [id number] Bone Density: Region BMD T-score Z-score Classification AP Spine(L1-L4) 1.305 2.3 5.2 Normal Femoral Neck (Left) 0.530 -2.9 -0.4 Osteoporosis Total Hip (Left) 0.806 -1.1 1.1 Osteopenia Femoral Neck (Right) 0.664 -1.7 0.8 Osteopenia Total Hip (Right) 0.991 0.4 2.6 Normal Femoral Neck Mean 0.597 -2.3 0.2 Osteopenia Total Hip Mean 0.899 -0.4 1.9 Normal World Health Organization criteria for BMD impression classify patients as: Normal (T-score at or above -1.0), Osteopenia (T-score between -1.0 and -2.5), or Osteoporosis (T-score at or below -2.5). 10-year Fracture Risk: FRAX not reported because: Some T-score for Spine Total or Hip Total or Femoral Neck at or below -2.5 Clinical Information Provided by Patient: Parent has had a hip fracture Has used the following medications: Vitamin D Menopause Age: 49 No regular weight bearing exercise Drinks caffeinated beverages Onset of menses at age 13 Impression: The patient has osteoporosis, based on the Left Femoral Neck T-score. The patient has risk factors, including: parental hip fracture. Discussion: INCREASED RISK OF FRACTURE. BONE DENSITY IS UNDESIRABLY LOW AT ONE OR MORE SKELETAL SITES, CONSISTENT WITH POSTMENOPAUSAL OSTEOPOROSIS. This patient's lowest T-score meets the World Health Organization's (WHO) criteria for osteoporosis at one or more sites (T-score -2.5 or below). In untreated patients, the risk of osteoporotic fracture increases approximately two-fold for each 1.0 SD decrease in T-score. Low bone density is not the only risk factor for fracture; also consider factors such as patient's age, frailty or poor health, risk of falling, risk of injury, previous osteoporotic fracture, family history of osteoporosis, cigarette smoking, low body weight, etc. Not everyone with low bone mineral density has osteoporosis; osteomalacia and other metabolic bone disorders should also be considered. Patients who have osteoporosis should be evaluated for specific diseases and conditions (secondary causes) that may cause or contribute to bone loss. The [place] Association of Clinical Endocrinologists (AACE) and National Osteoporosis Foundation (NOF) recommend pharmacologic intervention for all postmenopausal women whose T-score is in this range. The patient should follow a healthful lifestyle (good nutrition with adequate calcium and vitamin D, and appropriate weight-bearing exercise). Follow-Up: Consider a repeat BMD and Vertebral Fracture Assessment (VFA) exam in 2 years or sooner if medically necessary, to reassess this patient's status. Reported by: CORDELL on 11/28/2024 1:21:00 PM. Reviewed, dictated and finalized at location A.
== END 2024-11-28 12:53 | disposition home or self-care (01) ==
PROVIDERS: PCP Internal Medicine; Visit Provider Nurse Practitioner Family
DX: M81.0 Age-related osteoporosis without current pathological fracture (principal); M85.89 Other specified disorders of bone density and structure, multiple sites
CPT/HCPCS: 77080

== ENCOUNTER 2024-12-20 12:18 | Outpatient (CLI) | payer MEDICARE, SELFPAY ==
--- NOTE | ~2024-12-20 | US_ITS ---
Clinical History: Carotid Bruit, Hypertension Examination: US carotid duplex BI Comparison: None Technique: Grayscale, color, duplex/spectral Doppler sonography carotid and vertebral arteries. Distal CCA and Peak ICA systolic velocities provided. Society of Radiologists in Ultrasound (SRU) consensus criteria utilized, indirectly assessing stenosis by velocities. Findings: Mild scattered plaque Right side: CCA - 85 cm/sec. ICA - 77 cm/sec. ICA/CCA - 0.9 Left Side: CCA - 77 cm/sec. ICA - 177 cm/sec. ICA/CCA - 2.3 Normal antegrade flow measured bilateral vertebral arteries. IMPRESSION: 1. 50-69% stenosis left ICA. 2. No hemodynamically significant right ICA stenosis (i.e., if any stenosis, less than 50%). 3. Normal bilateral antegrade vertebral artery flow. Stenosis measured by Society of Radiologists in Ultrasound (SRU) criteria. Reviewed, dictated and finalized at location R. ECT STRUCTURAL ENGINEER IMPRESSION: 1. 50-69% stenosis left ICA. 2. No hemodynamically significant right ICA stenosis (i.e., if any stenosis, l ess than 50%). 3. Normal bilateral antegrade vertebral artery flow. Stenosis measured by Society of Radiologists in Ultrasound (SRU) criteria.
== END 2024-12-20 12:19 | disposition home or self-care (01) ==
PROVIDERS: PCP Internal Medicine; Visit Provider Internal Medicine
DX: R09.89 Other specified symptoms and signs involving the circulatory and respiratory systems (principal); I10 Essential (primary) hypertension; I65.22 Occlusion and stenosis of left carotid artery
CPT/HCPCS: 93880

== ENCOUNTER 2025-01-10 08:17 | Outpatient (CLI) | payer MEDICARE, SELFPAY ==
--- NOTE | ~2025-01-10 | US_ITS ---
US right upper quadrant Indication: ELEVATED LIVER ENZYMES Comparison: None Technique: Odom-scale and color Doppler images were obtained. Findings: LIVER: Unremarkable, liver contours intact, no lesions. Normal echogenicity. . GALLBLADDER/BILIARY: Post cholecystectomy. CBD 3 mm. [place] sign negative. PANCREAS: Pancreas limited by bowel gas. Right Kidney: The right kidney was not imaged. Impression: No acute abnormality. Reviewed, dictated and finalized at location P. D MARKETING DIRECTOR Impression: No acute abnormality.
== END 2025-01-10 08:18 | disposition home or self-care (01) ==
PROVIDERS: PCP Internal Medicine; Visit Provider Internal Medicine
DX: R74.01 Elevation of levels of liver transaminase levels (principal)
CPT/HCPCS: 76705

== ENCOUNTER 2025-01-19 16:07 | Outpatient (CLI) | payer MEDICARE, SELFPAY ==
--- NOTE | ~2025-01-19 | XR_ITS ---
EXAMINATION: XR chest 2V, 01/19/2025 16:20 HAND IRONER HISTORY: COUGH, FEVER COMPARISON: No comparisons available. Technique: 2 views obtained. Findings: The lungs are clear, no effusion. No pneumothorax. Heart is normal size. Mediastinal and hilar contours are within normal limits. Bony thorax no acute abnormality. Impression: No acute cardiopulmonary abnormality. Reviewed, dictated and finalized at location P. IRONER Impression: No acute cardiopulmonary abnormality.
[2025-01-19 16:23] LABS: Hematocrit 39.2 % (35.0-42.0); Hemoglobin 12.5 g/dL (11.7-13.8); Mean Corpuscular HGB Conc 31.9 g/dL (32-36); Mean Corpuscular Hemoglobin 30.2 pg (27.0-31.0); Mean Corpuscular Volume 94.7 fL (78.0-102.0); Platelet Count Result 123 K/mm3 (150-420); Red Blood Count 4.14 M/mm3 (4.20-5.40); White Blood Count 3.7 K/mm3 (4.8-10.8)
[2025-01-19 16:35] LABS: Alanine Aminotransferase 60 U/L (6-35); Albumin Level 4.5 g/dL (3.5-5.1); Alkaline Phosphatase 61 U/L (38-126); Anion Gap 8 mmol/L (4-12); Aspartate Amino Transferase 57 U/L (14-36); Bilirubin,Total 0.3 mg/dL (0.2-1.3); Blood Urea Nitrogen 24 mg/dL (7-17); Calcium 9.2 mg/dL (8.4-10.2); Carbon Dioxide 27 mmol/L (22-30); Chloride 109 mmol/L (98-107); Estimated Glomerular Filt Rate 59; Glucose 99 mg/dL (65-110); Osmolality Calculated 302 mOsm/kg (285-295); Potassium 4.0 mmol/L (3.4-5.0); Sodium 144 mmol/L (137-145); Total Protein 7.2 g/dL (6.3-8.2)
== END 2025-01-19 16:08 | disposition home or self-care (01) ==
PROVIDERS: PCP Internal Medicine; Visit Provider Internal Medicine
DX: R05.9 Cough, unspecified (principal); R50.9 Fever, unspecified
CPT/HCPCS: 36415; 71046; 80053; 85027

== ENCOUNTER 2025-02-02 15:49 | Outpatient (CLI) | payer MEDICARE, SELFPAY ==
[2025-02-02 16:52] LABS: SARS-CoV-2 RNA PCR Negative (Negative)
== END 2025-02-02 15:50 | disposition home or self-care (01) ==
LOC: CHSLAB 15:58
PROVIDERS: PCP Internal Medicine; Visit Provider Internal Medicine
DX: J06.9 Acute upper respiratory infection, unspecified (principal)
CPT/HCPCS: 87635

== ENCOUNTER 2025-02-11 10:59 | Outpatient (CLI) | payer MEDICARE, SELFPAY ==
--- NOTE | ~2025-02-11 | MR_ITS ---
EXAMINATION: MR lumbar spine wo con DATE: 02/11/2025 11:59 INDICATION: Low back pain. Right-sided sciatica. TECHNIQUE: Magnetic resonance imaging (MRI) of the lumbar spine was performed without intravenous contrast. COMPARISON: None FINDINGS: There is 9 degrees dextrocurvature of lumbar spine. There is 3 mm retrolisthesis of L1 on L2, 5 mm retrolisthesis of L2 on L3, and 3 mm retrolisthesis of L3 on L4 and L5 on S1. Vertebral body heights are normal. There is moderately decreased disc height at L1-L2 and L2-L3, severely decreased disc height at L3-L4, moderately decreased disc height at L4-L5, and severely decreased disc height at L5-S1. The distal spinal cord signal intensity is normal. The conus medullaris is at L1. The following disc levels are specifically discussed: L1-L2: The disc is bulging and has an annular fissure. There is moderate bilateral facet joint osteoarthritis. There is mild bilateral neural foraminal stenosis. There is mild central canal stenosis. L2-L3: The disc is bulging. There is mild bilateral facet joint osteoarthritis. There is mild right and moderate left neural foraminal stenosis. There is mild central canal stenosis. L3-L4: The disc is bulging and has an annular fissure. There is moderate right and severe left facet joint osteoarthritis. There is moderate bilateral neural foraminal stenosis. There is mild central canal stenosis. L4-L5: The disc is bulging and has an annular fissure. There is severe bilateral facet joint osteoarthritis. There is mild bilateral neural foraminal stenosis. There is mild central canal stenosis. L5-S1: The disc is bulging and has an annular fissure. There is severe bilateral facet joint osteoarthritis. There is mild bilateral neural foraminal stenosis. There is mild central canal stenosis. IMPRESSION: 1. Severe lumbar spondylosis. Reviewed, dictated and finalized at location E. 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
== END 2025-02-11 11:00 | disposition home or self-care (01) ==
LOC: CHSIMG 11:01
PROVIDERS: PCP Internal Medicine; Visit Provider Nurse Practitioner Family
DX: M54.16 Radiculopathy, lumbar region (principal); M43.06 Spondylolysis, lumbar region
CPT/HCPCS: 72148